=== PATIENT | female | born 1990 | race Caucasian/White ===

== ENCOUNTER → 2016-03-15 | Outpatient (CLI) | payer BC ==
--- NOTE | 2016-03-15 11:56 | US ---
EXAMINATION TYPE: US OB <= 14 wk fetus DATE OF EXAM: 03/15/2016 11:18 AM COMPARISON: No previous CLINICAL HISTORY: Confirm dates, 1. EXAM PERFORMED: Transabdominal (TA) EXAM MEASUREMENTS: GESTATIONAL AGE / DATING Physician Established: (10 weeks/0 days) EDC: 10/11/2016 Dates by LMP: (10 weeks/0 days) EDC: 10/14/2016 Dates by First Scan: No previous Dates by Current Scan: (10 weeks/5 days) EDC: 10/06/2016 MATERNAL ANATOMY Uterus: 11.8 x 6.2 x 7.3cm Right Ovary: 2.7 x 1.9 x 1.4cm Left Ovary: 3.3 x 2.3 x 1.5cm Post CDS / Adnexa: small amount of free fluid in posterior cul de sac Presence of free fluid: yes Presence of corpus luteal cyst: not seen at this time Presence of subchorionic bleed: no GESTATION / SURVEY CRL: 3.9cm (10 weeks/5 days) Yolk Sac (normal less than 6mm): 4.5mm Heart Rate: 167 bpm Rhythm: Normal IUP: Viable IUP Nuchal Translucency 10-14wks (normal less than 3mm): 1.0mm Date of LMP: 01/05/16 Beta HcG (if available): Not available at time of exam IMPRESSION: 1. Viable single IUP measuring 10 weeks 5 days with a heart rate of 167bpm and an estimated delivery date of 10/06/2016. 2. Nonspecific small amount of free fluid seen in posterior cul de sac
== END | disposition home or self-care (01) ==
LOC: RADUSWWP 10:54
PROVIDERS: ATTEND Obstetrics & Gynecology
DX: Z36 Encounter for antenatal screening of mother (principal)
CPT/HCPCS: 76801; 76813

== ENCOUNTER 2016-06-25 02:30 | Outpatient (CLI) | payer BC ==
[2016-06-25 03:25] VITALS: BP 124/67; PULSE 112; RESP 40; TEMP 97.9
[2016-06-25] MEDS: LACTATED RINGERS 1,000 ML IV SCH ×3 (03:33→16:42)
[2016-06-25 03:38] LABS: CH 32.1; CHCM 34.9; HCT 37.9 % (34.0-46.0); HDW 2.56; HGB 13.1 gm/dL (11.4-16.0); MCH 31.9 pg (25.0-35.0); MCHC 34.5 g/dL (31.0-37.0); MCV 92.5 fL (80.0-100.0); Mean Platelet Volume 7.4; RDW 13.4 % (11.5-15.5); WBC 13.4 k/uL (3.8-10.6)
[2016-06-25 03:47] LABS: ALT 27 U/L (9-52); AST 21 U/L (14-36); Alkaline Phosphatase 78 U/L (38-126); Anion Gap 11 mmol/L; Blood Urea Nitrogen 12 mg/dL (7-17); Calcium 9.1 mg/dL (8.4-10.2); Carbon Dioxide 19 mmol/L (22-30); Chloride 106 mmol/L (98-107); Glucose 141 mg/dL (74-99); Non-African American GFR(MDRD) >60 (>60 ml/min/1.73 sqM); Potassium 3.7 mmol/L (3.5-5.1); Sodium 136 mmol/L (137-145); Total Bilirubin 0.9 mg/dL (0.2-1.3); Total Protein 7.1 g/dL (6.3-8.2)
--- NOTE | 2016-06-25 06:30 | P.MSEPDOC ---
Presenting Problems - Arrival Data Date of Arrival on Unit: 06/25/16 Time of Arrival on Unit: 02:28 Mode of Transport: Wheelchair - Complaint OB-Reason for Admission/Chief Complaint: Acute Nausea/Vomiting Medical History - Information : 1 Para: 0 Term: 0 : 0 Abortions: Spontaneous or Elective: 0 Number of Living Children: 0 - Gestational Age Expected Date of Delivery: 10/11/16 Gestational Age by YARELIS (wks/days): 24 Weeks and 4 Days Review of Systems - Review of Systems Constitutional: No problems Breast: No problems ENT: No problems Cardiovascular: No problems Respiratory: No problems Gastrointestinal: Diarrhea Genitourinary: No problems Musculoskeletal: No problems Neurological: Seizure Skin: No problems Comment: pt has known seizure disorder, last seizure 2 weeks ago (non tonic clonic), IBS, and Lupus Vital Signs - Temperature Temperature: 97.9 F Temperature Source: Oral - Pulse Right Sitting Brachial Pulse Rate: 112 Pulse Assessment Method: Pulse Oximetry - Respirations Respiratory Rate: 40 Oxygen Delivery Method: Room Air O2 Sat by Pulse Oximetry: 100 - Blood Pressure Right Arm Sitting Blood Pressure: 124/67 Blood Pressure Mean: 86 Blood Pressure Source: Automatic Cuff Medical Screen Scoring (Pre) - Cervical Exam Dilation: 0 cm = 0 - Uterine Contractions Frequency: < 36 weeks = 6 Duration: N/A Intensity: N/A - Maternal Vital Signs Maternal Temperature: N/A Maternal Blood Pressure: N/A Signs of Preeclampsia: N/A Maternal Respirations: N/A - Maternal Trauma Maternal Trauma: N/A - Assessment Baseline FHR: 165 Heart Rate - NICHD Category: Category I (Normal) = 0 Position: N/A Station: N/A - Total Score Total Score (Pre): 6 - Level of Risk Level of Risk: Medium (6-9) Physician Notification (Pre) - Physician Notified Physician Notified Date: 06/25/16 Physician Notified Time: 03:04 Spoke With: dr ortiz New Order Received: Yes Medical Screen Scoring (Post) - Cervical Exam Dilation: Exam Deferred Effacement: Exam Deferred - Uterine Contractions Frequency: N/A Duration: N/A Intensity: N/A - Maternal Vital Signs Maternal Temperature: N/A Signs of Preeclampsia: N/A Maternal Respirations: N/A - Maternal Trauma Maternal Trauma: N/A - Assessment Heart Rate: 155 Heart Rate - NICHD Category: Category I (Normal) = 0 Position: N/A Station: N/A - Total Score Total Score (Post): 0 - Post Treatment Level of Risk Post Treatment Level of Risk: Low (0-5) Physician Notification (Post) - Physician Notified Physician Notified Date: 06/25/16 Physician Notified Time: 05:24 Physician/Practitioner Notified:: dr ortiz New Order Received: Yes Disposition - Disposition OB Disposition: Discharge to home Discharge Date: 06/25/16 Discharge Time: 05:24 I agree with the RN Medical Screening Exam: Yes Risk & Benefit of care provided described in d/c instruction: Yes Diagnosis: NONINFECTIVE GASTROENTERITIS AND COLITIS, UNSPECIFIED
== END 2016-06-25 05:25 | disposition home or self-care (01) ==
LOC: FBPOP 02:30
PROVIDERS: ATTEND Obstetrics & Gynecology
DX: O99.612 Diseases of the digestive system complicating pregnancy, second trimester (principal); K52.9 Noninfective gastroenteritis and colitis, unspecified; Z3A.24 24 weeks gestation of pregnancy
CPT/HCPCS: 80053; 85027; 96360; 96361; 96365; 99214

== ENCOUNTER 2016-08-29 12:17 | Outpatient (CLI) | payer BC ==
[2016-08-29 12:33] VITALS: BP 128/80; PULSE 96; RESP 18; TEMP 96.9
[2016-08-29 12:57] LABS: Basophils % (A) 0 %; CH 29.6; CHCM 33.5; Eosinophils # (A) 0.1 k/uL (0-0.7); Eosinophils % (A) 1 %; HCT 33.3 % (34.0-46.0); HDW 2.85; HGB 11.6 gm/dL (11.4-16.0); Luc # (Auto) 0.25; Luc % (Auto) 2; Lymphocytes # (A) 1.4 k/uL (1.0-4.8); Lymphocytes % (A) 12 %; MCH 30.9 pg (25.0-35.0); MCHC 34.9 g/dL (31.0-37.0); MCV 88.7 fL (80.0-100.0); Mean Platelet Volume 8.1; Monocytes # (A) 0.6 k/uL (0-1.0); Monocytes % (A) 5 %; Neutrophils # (A) 8.7 k/uL (1.3-7.7); Neutrophils % (A) 80 %; RBC 3.76 m/uL (3.80-5.40); RDW 13.6 % (11.5-15.5); WBC (Perox) 11.78
[2016-08-29 13:06] LABS: ALT 32 U/L (9-52); AST 22 U/L (14-36); Blood Urea Nitrogen 9 mg/dL (7-17); LDH 395 U/L (313-618); Non-African American GFR(MDRD) >60 (>60 ml/min/1.73 sqM); Uric Acid 4.2 mg/dL (3.7-7.4)
[2016-08-29 13:48] LABS: Appearance,Urine Clear (Clear); Bilirubin,Urine Negative (Negative); Glucose,Urine (UA) Negative (Negative); Ketones,Urine Negative (Negative); Leukocyte Esterase,Urine Negative (Negative); Nitrite,Urine Negative (Negative); PH, Urine 7.5 (5.0-8.0); Protein,Urine Negative (Negative); Specific Gravity,Urine 1.005 (1.001-1.035); UA Billing (MACRO vs. MICRO) CHEM; Urobilinogen,Urine <2.0 mg/dL (<2.0)
--- NOTE | 2016-08-30 10:06 | P.MSEPDOC ---
Presenting Problems - Arrival Data Date of Arrival on Unit: 08/29/16 Time of Arrival on Unit: 12:17 Mode of Transport: Ambulatory - Complaint OB-Reason for Admission/Chief Complaint: Elevated Blood Pressure Medical History - Information : 1 Para: 0 Term: 0 : 0 Abortions: Spontaneous or Elective: 0 Number of Living Children: 0 - Gestational Age Expected Date of Delivery: 10/11/16 Gestational Age by YARELIS (wks/days): 34 Weeks and 0 Days Review of Systems - Review of Systems Constitutional: No problems Breast: No problems ENT: No problems Cardiovascular: No problems Respiratory: No problems Gastrointestinal: No problems Genitourinary: No problems Musculoskeletal: No problems Neurological: No problems Skin: No problems Vital Signs - Temperature Temperature: 96.9 F Temperature Source: Temporal Artery Scan - Pulse Right Sitting Brachial Pulse Rate: 96 Pulse Assessment Method: Automatic Cuff - Respirations Respiratory Rate: 18 Oxygen Delivery Method: Room Air - Blood Pressure Right Arm Sitting Blood Pressure: 128/80 Blood Pressure Mean: 96 Blood Pressure Source: Automatic Cuff Medical Screen Scoring (Pre) - Cervical Exam Dilation: Exam Deferred Effacement: Exam Deferred - Uterine Contractions Frequency: N/A - Maternal Vital Signs Maternal Temperature: N/A Maternal Blood Pressure: N/A Signs of Preeclampsia: N/A Maternal Respirations: N/A - Maternal Trauma Maternal Trauma: N/A - Assessment Baseline FHR: 140 Heart Rate - NICHD Category: Category I (Normal) = 0 NST: Reactive Position: N/A Station: N/A - Total Score Total Score (Pre): 0 - Level of Risk Level of Risk: Low (0-5) Physician Notification (Pre) - Physician Notified Physician Notified Date: 08/29/16 Physician Notified Time: 12:30 Spoke With: Elieser Galan Order Received: Yes - Notification Comment Comment: Preeclampsia labs including lamictal level Medical Screen Scoring (Post) - Cervical Exam Dilation: Exam Deferred Effacement: Exam Deferred - Uterine Contractions Frequency: N/A Duration: N/A Intensity: N/A - Maternal Vital Signs Maternal Temperature: N/A Maternal Blood Pressure: N/A Signs of Preeclampsia: N/A Maternal Respirations: N/A - Maternal Trauma Maternal Trauma: N/A - Assessment Heart Rate: 140 Heart Rate - NICHD Category: Category I (Normal) = 0 NST: Reactive Position: N/A Station: N/A - Total Score Total Score (Post): 0 - Post Treatment Level of Risk Post Treatment Level of Risk: Low (0-5) Physician Notification (Post) - Physician Notified Physician Notified Date: 08/29/16 Physician Notified Time: 14:00 Spoke With: Elieser Galan Order Received: Yes - Notification Comment Comment: d/c home Disposition - Disposition OB Disposition: Admit Discharge Date: 08/29/16 Discharge Time: 14:02 I agree with the RN Medical Screening Exam: Yes Risk & Benefit of care provided described in d/c instruction: Yes Diagnosis: EPILEPSY, UNSP, NOT INTRACTABLE, WITHOUT STATUS EPILEPTICUS
== END 2016-08-29 14:02 | disposition home or self-care (01) ==
LOC: FBPOP 12:17
PROVIDERS: ATTEND Obstetrics & Gynecology
DX: O99.353 Diseases of the nervous system complicating pregnancy, third trimester (principal); G40.909 Epilepsy, unspecified, not intractable, without status epilepticus; Z3A.34 34 weeks gestation of pregnancy
CPT/HCPCS: 59025; 80175; 81003; 82565; 83615; 84450; 84460; 84520; 84550; 85025; 99215

== ENCOUNTER 2016-10-04 12:22 | Inpatient (IN) | payer BC ==
[2016-10-04] MEDS ORDERED: OXYTOCIN 10 UNIT/ML 1 ML VIAL IM PRN (12:48)
[2016-10-04] MEDS ORDERED: METHYLERGONOVINE 0.2 MG/ML 1 ML AMP IM PRN (12:48)
[2016-10-04] MEDS ORDERED: LIDOCAINE 1% (PF) 10 MG/ML (30 ML SDV) SQ PRN (12:48)
[2016-10-04] MEDS ORDERED: TERBUTALINE 1 MG/ML VIAL SQ PRN (12:48)
[2016-10-04] MEDS ORDERED: CARBOPROST TROMETHAMINE 250 MCG/ML 1 ML AMP IM PRN (12:48)
[2016-10-04] MEDS ORDERED: OXYTOCIN 20 UNITS/1000 ML NS 1,000 ML IV SCH ×2 (13:00→20:30)
[2016-10-04] MEDS: LACTATED RINGERS 1,000 ML IV SCH ×2 (13:06→16:00)
--- NOTE | 2016-10-04 13:06 | P.HPOB ---
History of Present Illness H&P Date: 10/04/16 Chief Complaint: Gestational Hypertension 25 year old presents at 39 weeks for induction of labor. She came to the office today and was found to have an elevated BP of 154/102. This is the second time she has had an elevated BP so she was diagnosed with gestational hypertension and sent to L&D for induction. Her cervix is 1/90/-2 and she is angie irregularly. heart tones 135-140 with moderate variability and reactive. Review of Systems All systems: negative Constitutional: Denies chills, Denies fever Eyes: denies blurred vision, denies pain Ears, nose, mouth and throat: Denies headache, Denies sore throat Cardiovascular: Denies chest pain, Denies shortness of breath Respiratory: Denies cough Gastrointestinal: Denies abdominal pain, Denies diarrhea, Denies nausea, Denies vomiting Genitourinary: Denies dysuria, Denies hematuria Musculoskeletal: Denies myalgias Integumentary: Denies pruritus, Denies rash Neurological: Denies numbness, Denies weakness Psychiatric: Denies anxiety, Denies depression Endocrine: Denies fatigue, Denies weight change Past Medical History Past Medical History: Neurologic Disorder (epilepsy) Additional Past Medical History / Comment(s): IBS,. OB history: This is her first and she has had care with me since the first trimester. She has been on lamictal during the and has recently had to have the dose increased because she started to have seizures again and her level was not therapeutic. normal anatomy US.GBS neg. History of Any Multi-Drug Resistant Organisms: None Reported Past Surgical History: No Surgical Hx Reported Past Anesthesia/Blood Transfusion Reactions: No Reported Reaction Past Psychological History: No Psychological Hx Reported Smoking Status: Never smoker Past Alcohol Use History: None Reported Past Drug Use History: None Reported Medications and Allergies Home Medications Medication Instructions Recorded Confirmed Type Hydroxychloroquine Sulfate 200 mg PO BID 06/25/16 10/04/16 History [Plaquenil] Multivitamin/Iron/Folic Acid 1 each PO DAILY 06/25/16 10/04/16 History [Centrum Complete Multivit Tab] lamoTRIgine [LaMICtal] 500 mg PO AC-BRKFST 06/25/16 10/04/16 History Cholecalciferol (Vitamin D3) 2,000 tab PO DAILY 08/29/16 10/04/16 History [Vitamin D3] Folic Acid 0.4 tab PO DAILY 08/29/16 10/04/16 History lamoTRIgine [LaMICtal] 600 mg PO ACHS 10/04/16 10/04/16 History Allergies Allergy/AdvReac Type Severity Reaction Status Date / Time No Known Allergies Allergy Verified 10/04/16 12:42 Exam Osteopathic Statement: *. No significant issues noted on an osteopathic structural exam other than those noted in the History and Physical/Consult. - Vital Signs Vital signs: Intake and Output 10/03/16 10/04/16 10/04/16 22:59 06:59 14:59 Other: Weight 92.986 kg Patient Weight 10/05/16 06:59 Weight 92.986 kg Heart: Regular rate and rhythm Lungs: Clear to auscultation bilaterally Abdomen: Soft, nontender Extremities: Negative Homans sign Assessment and Plan (1) Gestational hypertension Status: Acute (2) Epilepsy Status: Acute Plan: 1. Induction of labor with amniotomy and Pitocin 2. Anticipate normal vaginal delivery
[2016-10-04 13:13] LABS: ALT 39 U/L (9-52); AST 30 U/L (14-36); LDH 518 U/L (313-618); Non-African American GFR(MDRD) >60 (>60 ml/min/1.73 sqM); Uric Acid 5.5 mg/dL (3.7-7.4)
[2016-10-04 13:16] LABS: INR 0.9 (<1.2); Partial Thromboplastin Time 24.2 sec (22.0-30.0); Prothrombin Time 9.5 sec (9.0-12.0)
[2016-10-04 13:22] LABS: Basophils % (A) 0 %; CH 29.1; CHCM 33.7; Eosinophils # (A) 0.1 k/uL (0-0.7); Eosinophils % (A) 1 %; HCT 36.2 % (34.0-46.0); HDW 2.58; HGB 12.4 gm/dL (11.4-16.0); Luc # (Auto) 0.16; Luc % (Auto) 1; Lymphocytes # (A) 1.4 k/uL (1.0-4.8); Lymphocytes % (A) 12 %; MCH 29.6 pg (25.0-35.0); MCHC 34.2 g/dL (31.0-37.0); MCV 86.7 fL (80.0-100.0); Mean Platelet Volume 8.1; Monocytes # (A) 0.5 k/uL (0-1.0); Monocytes % (A) 4 %; Neutrophils # (A) 9.6 k/uL (1.3-7.7); Neutrophils % (A) 82 %; RBC 4.17 m/uL (3.80-5.40); RDW 14.9 % (11.5-15.5); WBC 11.8 k/uL (3.8-10.6); WBC (Perox) 12.15
[2016-10-04 13:27] VITALS: RESP 16; BMI 30.2
[2016-10-04 14:46] LABS: Appearance,Urine Clear (Clear); Bacteria,Urine Occasional /hpf; Bilirubin,Urine Negative (Negative); Glucose,Urine (UA) Negative (Negative); Ketones,Urine 1+ (Negative); Leukocyte Esterase,Urine Trace (Negative); Nitrite,Urine Negative (Negative); Particle Count 3245; Protein,Urine Trace (Negative); RBC,Urine 99 /hpf (0-5); Specific Gravity,Urine 1.006 (1.001-1.035); Squamous Epithelial Cell,Urine 1 /hpf (0-4); UA Billing (MACRO vs. MICRO) MICRO; Urobilinogen,Urine <2.0 mg/dL (<2.0); WBC,Urine 87 /hpf (0-5)
[2016-10-04] MEDS ORDERED: BUPIVACAINE (PF) 0.25% 30 ML VIAL ONE (16:05)
[2016-10-04] MEDS ORDERED: SODIUM CHLORIDE 0.9% 100 ML BAG ONE (16:05)
[2016-10-04] MEDS ORDERED: fentaNYL (PF) 50 MCG/ML 5 ML AMP ONE (16:05)
[2016-10-04] MEDS ORDERED: diphenhydrAMINE 25 MG CAP PO PRN (20:24)
[2016-10-04] MEDS ORDERED: diphenhydrAMINE 50 MG/ML 1 ML VIAL IVP PRN ×2 (20:24)
[2016-10-04] MEDS ORDERED: BENZOCAINE/MENTHOL SPRAY 1 GM/SPRAY AEROSOL TOPICAL PRN (20:24)
[2016-10-04] MEDS ORDERED: ACETAMINOPHEN TAB 325 MG TAB PO PRN (20:24)
[2016-10-04] MEDS ORDERED: diphenhydrAMINE 50 MG CAP PO PRN (20:24)
[2016-10-04] MEDS ORDERED: SIMETHICONE 80 MG CHEWABLE PO PRN (20:24)
[2016-10-04] MEDS ORDERED: ZOLPIDEM 5 MG TAB PO PRN (20:24)
[2016-10-04] MEDS ORDERED: Acetaminophen-Codeine 300-30mg TAB PO PRN ×2 (20:24)
[2016-10-04] MEDS ORDERED: HYDROCORTISONE 2.5% RECTAL CREAM 30 GM TUBE RECTAL PRN (20:24)
[2016-10-04] MEDS ORDERED: LANOLIN CREAM 5 GM TUBE TOPICAL PRN (20:24)
[2016-10-04] MEDS ORDERED: WITCH HAZEL 1 EACH MED..PAD TOPICAL PRN (20:24)
--- NOTE | 2016-10-04 20:31 | P.PROBDLV ---
Vaginal Delivery Note - . Vaginal Delivery Note: 35-year-old presented at 39 weeks gestation for induction of labor. Her cervix was 1 cm dilated, 90% effaced, -2 station. She is angie irregularly. heart tones 135-140 with moderate variability and reactive. Amniotomy was performed at 12:52 PM, meconium fluid seen. Pitocin was started. She progressed throughout the day and did get an epidural was comfortable with this. Her cervix was completely dilated at 1908. She pushed, delivered a viable female over intact perineum under epidural anesthesia at 194. Head delivered OA, anterior shoulder delivered gentle downward traction followed by posterior shoulder and rest of body. Nose and mouth bulb suctioned, cord clamped and cut, placed on mother's abdomen. Apgars 9, 9 , weight 8 pounds. Placenta delivered spontaneously, intact with three-vessel cord at 194. Vagina, cervix, perineum inspected. Second-degree midline laceration and bilateral labial lacerations repaired with 2-0 and 3-0 Vicryl. Estimated blood loss 300 mL mother and baby in stable condition.
[2016-10-04] MEDS: IBUPROFEN 600 MG TAB PO PRN (22:15)
[2016-10-04] MEDS: lamoTRIgine 100 MG TAB PO SCH (22:16)
[2016-10-04] MEDS: HYDROXYCHLOROQUINE SULFATE 200 MG TAB PO SCH (22:17)
[2016-10-05] MEDS: IBUPROFEN 600 MG TAB PO PRN ×3 (05:19→19:49)
--- NOTE | 2016-10-05 08:52 | P.PNOBGVD ---
Subjective - Subjective Principal diagnosis: S/P NVD PPD #1 Interval history: Pt seen and examined. Denies N/V, F/C, CP, SOB, calf pain. Patient reports: Reports appetite normal, Reports voiding normally, Reports pain well controlled, Reports ambulating normally : doing well Objective - Latest Vital Signs Latest vital signs: Vital Signs Temp Pulse Resp BP 10/05/16 04:00 98.4 F 95 16 122/80 10/04/16 23:40 99.6 F 88 16 121/75 10/04/16 22:15 98.0 F 116 H 16 119/70 10/04/16 21:45 98.3 F 126 H 16 118/74 10/04/16 21:15 117 H 16 119/66 10/04/16 21:00 98.1 F 117 H 16 119/56 10/04/16 20:45 116 H 16 122/60 10/04/16 20:30 97.3 F L 122 H 16 123/75 10/04/16 20:15 116 H 16 124/78 10/04/16 13:19 98.0 F 103 H 16 150/81 Intake and Output 10/04/16 10/05/16 10/05/16 22:59 06:59 14:59 Intake Total 3244.85 600 Balance 3244.85 600 Intake: IV 125 Lactated Ringers 1,000 ml 125 @ 125 mls/hr IV .Q8H RUSS Rx#:[id number] Intake, IV Titration 1919.85 Amount Lactated Ringers 1,000 ml 1000 @ 125 mls/hr IV .Q8H RUSS Rx#:[id number] Oxytocin 20 Units/1000 ml 19.85 Ns 1,000 ml @ 1 MILLIUNIT/MIN 3 mls/hr IV .Q24H RUSS Rx#:[id number] Oxytocin 20 Units/1000 ml 900 Ns 1,000 ml @ Per Protocol IV .Q0M RUSS Rx#: [id number] Oral 1200 600 Other: # Voids 1 1 - Exam Lungs: bilateral: normal Chest: Normal S1, Normal S2 Extremities: Present: normal Abdomen: Present: normal appearance, soft Uterus: Present: normal, firm - Labs Labs: Abnormal Lab Results - Last 24 Hours (Table) 10/04/16 10/04/16 Range/Units 12:45 14:30 WBC 11.8 H (3.8-10.6) k/uL Neutrophils # 9.6 H (1.3-7.7) k/uL Urine Protein Trace H (Negative) Urine Ketones 1+ H (Negative) Urine Blood Large H (Negative) Ur Leukocyte Esterase Trace H (Negative) Urine RBC 99 H (0-5) /hpf Urine WBC 87 H (0-5) /hpf Urine Bacteria Occasional H (None) /hpf Assessment and Plan (1) Gestational hypertension Current Visit: Yes Status: Acute Code(s): O13.9 - GESTATIONAL HTN W/O SIGNIFICANT PROTEINURIA, UNSP TRIMESTER SNOMED Code(s): 96791090 (2) Epilepsy Current Visit: Yes Status: Acute Code(s): G40.909 - EPILEPSY, UNSP, NOT INTRACTABLE, WITHOUT STATUS EPILEPTICUS SNOMED Code(s): 14063469 (3) Normal vaginal delivery Narrative/Plan: 1. cont pp care Current Visit: Yes Status: Acute Code(s): O80 - ENCOUNTER FOR FULL-TERM UNCOMPLICATED DELIVERY SNOMED Code(s): 77829086
[2016-10-05] MEDS: SENNOSIDES-DOCUSATE SODIUM 1 EACH TAB PO SCH ×2 (09:01→19:49)
[2016-10-05] MEDS: lamoTRIgine 100 MG TAB PO SCH ×2 (09:02→20:53)
[2016-10-05] MEDS: HYDROXYCHLOROQUINE SULFATE 200 MG TAB PO SCH ×2 (09:02→20:53)
[2016-10-05] MEDS ORDERED: MEASLES-MUMPS-RUBELLA VACC/PF 12,500 UNIT/0.5 ML VIAL SQ ONE (12:16)
[2016-10-05] MEDS ORDERED: lamoTRIgine 100 MG TAB PO SCH (21:00)
[2016-10-06] MEDS: IBUPROFEN 600 MG TAB PO PRN (08:08)
[2016-10-06] MEDS: lamoTRIgine 100 MG TAB PO SCH (08:09)
[2016-10-06] MEDS: HYDROXYCHLOROQUINE SULFATE 200 MG TAB PO SCH (08:09)
[2016-10-06 08:32] VITALS: BP 113/71; PULSE 110; TEMP 98.1
--- NOTE | 2016-10-06 09:57 | P.DS ---
Providers Date of admission: 10/04/16 12:22 Expected date of discharge: 10/06/16 Attending physician: Chelsi Mon Primary care physician: Stated None - Discharge Diagnosis(es) (1) Gestational hypertension Current Visit: Yes Status: Acute (2) Epilepsy Current Visit: Yes Status: Acute (3) Normal vaginal delivery Pt presented for induction of labor. She underwent a normal vaginal delivery and had an uncomplicated post course. She will be discharged home PPD # 2 in stable condition to follow up with me in 6 weeks. Current Visit: Yes Status: Acute Plan - Discharge Summary New Discharge Prescriptions: New Ibuprofen [Motrin] 600 mg PO Q6HR PRN #30 tab PRN Reason: Mild Pain Or Fever >= 100.5 No Action lamoTRIgine [LaMICtal] 500 mg PO AC-BRKFST Multivitamin/Iron/Folic Acid [Centrum Complete Multivit Tab] 1 each PO DAILY Hydroxychloroquine Sulfate [Plaquenil] 200 mg PO BID Folic Acid 0.4 tab PO DAILY Cholecalciferol (Vitamin D3) [Vitamin D3] 2,000 tab PO DAILY lamoTRIgine [LaMICtal] 600 mg PO ACHS Discharge Medication List Hydroxychloroquine Sulfate [Plaquenil] 200 mg PO BID 06/25/16 [History] Multivitamin/Iron/Folic Acid [Centrum Complete Multivit Tab] 1 each PO DAILY [History] lamoTRIgine [LaMICtal] 500 mg PO AC-BRKFST 06/25/16 [History] Cholecalciferol (Vitamin D3) [Vitamin D3] 2,000 tab PO DAILY 08/29/16 [History] Folic Acid 0.4 tab PO DAILY 08/29/16 [History] lamoTRIgine [LaMICtal] 600 mg PO ACHS 10/04/16 [History] Ibuprofen [Motrin] 600 mg PO Q6HR PRN #30 tab 10/06/16 [Rx] Follow up Appointment(s)/Referral(s): Chelsi Mon DO [Doctor of Osteopathic Medicine] - 6 Weeks
== END 2016-10-06 10:45 | disposition home or self-care (01) | DRG 775 ==
LOC: 4FBP 12:22
PROVIDERS: ADMIT Obstetrics & Gynecology; ATTEND Obstetrics & Gynecology
PROC: 10907ZC Drainage of Amniotic Fluid, Therapeutic from Products of Conception, Via Natural or Artificial Opening (ICD-10-PCS; principal; 2016-10-04)
PROC: 3E033VJ Introduction of Other Hormone into Peripheral Vein, Percutaneous Approach (ICD-10-PCS; principal; 2016-10-04)
PROC: 00HU33Z Insertion of Infusion Device into Spinal Canal, Percutaneous Approach (ICD-10-PCS; principal; 2016-10-04)
PROC: 10E0XZZ Delivery of Products of Conception, External Approach (ICD-10-PCS; principal; 2016-10-04)
PROC: 3E0R3CZ (ICD-10-PCS; principal; 2016-10-04)
PROC: 0UQMXZZ Repair Vulva, External Approach (ICD-10-PCS; principal; 2016-10-04)
DX: O13.4 Gestational [pregnancy-induced] hypertension without significant proteinuria, complicating childbirth (principal); O99.354 Diseases of the nervous system complicating childbirth; Z37.0 Single live birth; G40.909 Epilepsy, unspecified, not intractable, without status epilepticus; O77.0 Labor and delivery complicated by meconium in amniotic fluid; O70.1 Second degree perineal laceration during delivery; Z3A.39 39 weeks gestation of pregnancy; O70.0 First degree perineal laceration during delivery
CPT/HCPCS: 80175; 81001; 82565; 83615; 84450; 84460; 84550; 85025; 85610; 85730; 88307; 90707

== ENCOUNTER 2018-10-10 12:29 | Emergency (ER) | payer BC ==
[2018-10-10] MEDS ORDERED: SODIUM CHLORIDE 0.9% 2,000 ML IV STA (13:21)
--- NOTE | 2018-10-10 13:44 | ED ---
Nausea/Vomiting/Diarrhea HPI - General Chief complaint: Nausea/Vomiting/Diarrhea Stated complaint: 8wks preg, diarrhea Time Seen by Provider: 10/10/18 12:56 Source: patient, RN notes reviewed Mode of arrival: ambulatory Limitations: no limitations - History of Present Illness Initial comments: 27-year-old female presents emergency Department chief complaint of nausea vomiting diarrhea. Patient states she's had diarrhea since Friday and has progressed. She did have one and one episode of vomiting but states constant nauseated. Patient states he is just worried that she is dehydrated and she is . She has no complaints of vaginal bleeding or vaginal discharge. Patient is A0 and seen Dr. Mon. Patient states her daughter was diagnosed with rotavirus she believes that she may have flu symptoms. Patient states that she just feels rundown and weak and dehydrated. Patient denies any melena or hematochezia - Related Data Home Medications Medication Instructions Recorded Confirmed Hydroxychloroquine Sulfate 200 mg PO BID 06/25/16 10/04/16 [Plaquenil] Multivitamin/Iron/Folic Acid 1 each PO DAILY 06/25/16 10/04/16 [Centrum Complete Multivit Tab] lamoTRIgine [LaMICtal] 500 mg PO AC-BRKFST 06/25/16 10/04/16 Cholecalciferol (Vitamin D3) 2,000 tab PO DAILY 08/29/16 10/04/16 [Vitamin D3] Folic Acid 0.4 tab PO DAILY 08/29/16 10/04/16 lamoTRIgine [LaMICtal] 600 mg PO ACHS 10/04/16 10/04/16 Previous Rx's Medication Instructions Recorded Ibuprofen [Motrin] 600 mg PO Q6HR PRN #30 tab 10/06/16 Allergies Allergy/AdvReac Type Severity Reaction Status Date / Time No Known Allergies Allergy Verified 10/10/18 12:52 Review of Systems ROS Statement: Those systems with pertinent positive or pertinent negative responses have been documented in the HPI. ROS Other: All systems not noted in ROS Statement are negative. Past Medical History Past Medical History: Neurologic Disorder Additional Past Medical History / Comment(s): IBS,. Epilepsy since age 10. Lupus History of Any Multi-Drug Resistant Organisms: None Reported Past Surgical History: No Surgical Hx Reported Past Anesthesia/Blood Transfusion Reactions: No Reported Reaction Past Psychological History: No Psychological Hx Reported Smoking Status: Never smoker Past Alcohol Use History: None Reported Past Drug Use History: None Reported - Past Family History Mother Family Medical History: No Reported History General Exam Limitations: no limitations General appearance: alert, in no apparent distress Head exam: Present: atraumatic, normocephalic, normal inspection Neck exam: Present: normal inspection, full ROM. Absent: tenderness, meningismus, lymphadenopathy Respiratory exam: Present: normal lung sounds bilaterally. Absent: respiratory distress, wheezes, rales, rhonchi, stridor Cardiovascular Exam: Present: regular rate, normal rhythm, normal heart sounds. Absent: systolic murmur, diastolic murmur, rubs, gallop, clicks GI/Abdominal exam: Present: soft, normal bowel sounds. Absent: distended, tenderness, guarding, rebound, rigid Neurological exam: Present: alert, oriented X3, CN II-XII intact Skin exam: Present: warm, dry, intact, normal color. Absent: rash Course Vital Signs 10/10/18 10/10/18 12:50 15:38 Temperature 98.6 F Pulse Rate 91 75 Respiratory 16 18 Rate Blood Pressure 113/77 100/53 O2 Sat by Pulse 99 100 Oximetry Medical Decision Making - Medical Decision Making 27-year-old female presented for diarrhea, dehydration. Patient is well hydrated 2 L she did have 2+ ketones otherwise unremarkable labs. Patient had ultrasound confirmed patient will be discharged. - Lab Data Result diagrams: 10/10/18 14:05 10/10/18 14:05 Lab Results 10/10/18 10/10/18 10/10/18 Range/Units 14:05 14:05 15:43 WBC 7.9 (3.8-10.6) k/uL RBC 4.96 (3.80-5.40) m/uL Hgb 14.8 (11.4-16.0) gm/dL Hct 44.9 (34.0-46.0) % MCV 90.6 (80.0-100.0) fL MCH 29.8 (25.0-35.0) pg MCHC 32.9 (31.0-37.0) g/dL RDW 15.4 (11.5-15.5) % Plt Count 208 (150-450) k/uL Neutrophils % 81 % Lymphocytes % 10 % Monocytes % 7 % Eosinophils % 1 % Basophils % 0 % Neutrophils # 6.4 (1.3-7.7) k/uL Lymphocytes # 0.8 L (1.0-4.8) k/uL Monocytes # 0.5 (0-1.0) k/uL Eosinophils # 0.1 (0-0.7) k/uL Basophils # 0.0 (0-0.2) k/uL Sodium 136 L (137-145) mmol/L Potassium 3.9 (3.5-5.1) mmol/L Chloride 100 (98-107) mmol/L Carbon Dioxide 22 (22-30) mmol/L Anion Gap 14 mmol/L BUN 12 (7-17) mg/dL Creatinine 0.53 (0.52-1.04) mg/dL Est GFR (CKD-EPI)AfAm >90 (>60 ml/min/1.73 sqM) Est GFR (CKD-EPI)NonAf >90 (>60 ml/min/1.73 sqM) Glucose 82 (74-99) mg/dL Calcium 9.3 (8.4-10.2) mg/dL Magnesium 1.8 (1.6-2.3) mg/dL Total Bilirubin 0.6 (0.2-1.3) mg/dL AST 71 H (14-36) U/L ALT 35 (9-52) U/L Alkaline Phosphatase 62 (38-126) U/L Total Protein 7.7 (6.3-8.2) g/dL Albumin 4.4 (3.5-5.0) g/dL Amylase 44 (30-110) U/L Lipase 36 (23-300) U/L Urine Color Yellow Urine Appearance Clear (Clear) Urine pH 6.0 (5.0-8.0) Ur Specific Dixon 1.013 (1.001-1.035) Urine Protein Negative (Negative) Urine Glucose (UA) Negative (Negative) Urine Ketones 2+ H (Negative) Urine Blood Negative (Negative) Urine Nitrite Negative (Negative) Urine Bilirubin Negative (Negative) Urine Urobilinogen <2.0 (<2.0) mg/dL Ur Leukocyte Esterase Negative (Negative) Disposition Clinical Impression: Viral diarrhea, Dehydration Disposition: HOME SELF-CARE Condition: Stable Instructions (If sedation given, give patient instructions): Acute Diarrhea (ED) Additional Instructions: Please return to the Emergency Department if symptoms worsen or any other concerns. Is patient prescribed a controlled substance at d/c from ED?: No Referrals: Clay Hemphill MD [Primary Care Provider] - 1-2 days Time of Disposition: 16:26
[2018-10-10 14:23] LABS: Basophils % (A) 0 %; Eosinophils # (A) 0.1 k/uL (0-0.7); Eosinophils % (A) 1 %; HCT 44.9 % (34.0-46.0); HGB 14.8 gm/dL (11.4-16.0); Lymphocytes # (A) 0.8 k/uL (1.0-4.8); Lymphocytes % (A) 10 %; MCH 29.8 pg (25.0-35.0); MCHC 32.9 g/dL (31.0-37.0); MCV 90.6 fL (80.0-100.0); Mean Platelet Volume 6.9; Monocytes # (A) 0.5 k/uL (0-1.0); Monocytes % (A) 7 %; Neutrophils # (A) 6.4 k/uL (1.3-7.7); Neutrophils % (A) 81 %; Platelet Count 208 k/uL (150-450); RBC 4.96 m/uL (3.80-5.40); RDW 15.4 % (11.5-15.5); WBC 7.9 k/uL (3.8-10.6)
[2018-10-10 14:34] LABS: ALT 35 U/L (9-52); AST 71 U/L (14-36); African American GFR (CKD) >90 (>60 ml/min/1.73 sqM); Albumin 4.4 g/dL (3.5-5.0); Alkaline Phosphatase 62 U/L (38-126); Amylase 44 U/L (30-110); Anion Gap 14 mmol/L; Blood Urea Nitrogen 12 mg/dL (7-17); Calcium 9.3 mg/dL (8.4-10.2); Carbon Dioxide 22 mmol/L (22-30); Chloride 100 mmol/L (98-107); Glucose 82 mg/dL (74-99); Magnesium 1.8 mg/dL (1.6-2.3); Sodium 136 mmol/L (137-145); Total Bilirubin 0.6 mg/dL (0.2-1.3); Total Protein 7.7 g/dL (6.3-8.2)
--- NOTE | 2018-10-10 14:51 | US ---
EXAMINATION TYPE: Transabdominal DATE OF EXAM: 10/10/2018 2:41 PM COMPARISON: NONE CLINICAL HISTORY: Pain. Diarrhea EXAM PERFORMED: Transabdominal (TA) EXAM MEASUREMENTS: GESTATIONAL AGE / DATING Physician Established: Not yet established Dates by LMP: (7 weeks/5 days) EDC: 05/24/2019 Dates by First Scan: No previous this is first scan Dates by Current Scan for: (6 weeks/6 days) EDC: 05/30/2019 MATERNAL ANATOMY Uterus: 8.8 x 5.4 x 6.1 cm Right Ovary: 2.5 x 2.2 x 2.0 cm Left Ovary: 1.7 x 1.8 x 1.5 cm Post CDS / Adnexa: wnl Presence of free fluid: No Presence of corpus luteal cyst: Right ovary measuring 1.3 x 1.3 x 0.9 cm Presence of subchorionic bleed: No GESTATION / SURVEY CRL: 0.9 cm (6 weeks/6 days) Yolk Sac (normal less than 6mm): 2 mm Heart Rate: 153 bpm Rhythm: Normal IUP: Viable IUP Date of LMP: 08/17/2018 Beta HcG (if available): Not available at this time Viable IUP with an YARELIS of 05/30/2019. Single live intrauterine gestation is confirmed as gestational sac, yolk sac, and pole are pres ent. No free fluid in pelvic cul-de-sac. Both ovaries are seen. Corpus luteal cyst right ovary is felt present as there is 1.3 cm cystic lesio n identified. IMPRESSION: Single live intrauterine gestation is confirmed, mean crown-rump length is 0.9 cm corresp onding to 6 week 6 day old fetus.
[2018-10-10 14:53] LABS: Potassium 3.9 mmol/L (3.5-5.1)
[2018-10-10 15:40] VITALS: RESP 18
[2018-10-10 15:55] LABS: Appearance,Urine Clear (Clear); Bilirubin,Urine Negative (Negative); Blood,Urine Negative (Negative); Color,Urine Yellow; Glucose,Urine (UA) Negative (Negative); Ketones,Urine 2+ (Negative); Leukocyte Esterase,Urine Negative (Negative); Nitrite,Urine Negative (Negative); Protein,Urine Negative (Negative); Specific Gravity,Urine 1.013 (1.001-1.035); Urobilinogen,Urine <2.0 mg/dL (<2.0)
[2018-10-10 17:03] VITALS: BP 105/63; PULSE 86; TEMP 97.6
== END 2018-10-10 17:03 | disposition home or self-care (01) ==
LOC: EC 12:29
DX: O99.281 Endocrine, nutritional and metabolic diseases complicating pregnancy, first trimester (principal); E86.0 Dehydration; O98.511 Other viral diseases complicating pregnancy, first trimester; A08.4 Viral intestinal infection, unspecified; O99.89 Other specified diseases and conditions complicating pregnancy, childbirth and the puerperium; R82.4 Acetonuria; R53.1 Weakness; O99.351 Diseases of the nervous system complicating pregnancy, first trimester; G40.909 Epilepsy, unspecified, not intractable, without status epilepticus; M32.9 Systemic lupus erythematosus, unspecified; Z79.899 Other long term (current) drug therapy; Z87.19 Personal history of other diseases of the digestive system; Z3A.01 Less than 8 weeks gestation of pregnancy
CPT/HCPCS: 36415; 76801; 80053; 81003; 82150; 83690; 83735; 85025; 96360; 96361; 99284

== ENCOUNTER 2019-04-29 19:31 | Outpatient (CLI) | payer BC ==
[2019-04-29 20:46] LABS: Protein/Creatinine Ratio,Urine 0.095
[2019-04-29 21:07] LABS: Appearance,Urine Clear (Clear); Bilirubin,Urine Negative (Negative); Blood,Urine Negative (Negative); Color,Urine Yellow; Glucose,Urine (UA) Negative (Negative); Ketones,Urine Negative (Negative); Leukocyte Esterase,Urine Negative (Negative); Mucus,Urine Rare /hpf; Nitrite,Urine Negative (Negative); PH, Urine 6.5 (5.0-8.0); Protein,Urine 1+ (Negative); RBC,Urine <1 /hpf (0-5); Specific Gravity,Urine 1.025 (1.001-1.035); Squamous Epithelial Cell,Urine <1 /hpf (0-4); Urobilinogen,Urine <2.0 mg/dL (<2.0); WBC,Urine <1 /hpf (0-5)
[2019-04-29 21:27] VITALS: BP 126/89; PULSE 92; RESP 16; TEMP 97.2
[2019-04-29 21:51] LABS: ALT 12 U/L (4-34); AST 24 U/L (14-36); African American GFR (CKD) >90 (>60 ml/min/1.73 sqM); Blood Urea Nitrogen 15 mg/dL (7-17); LDH 426 U/L (313-618); Non-African American GFR(CKD) >90 (>60 ml/min/1.73 sqM); Uric Acid 4.3 mg/dL (3.7-7.4)
[2019-04-29 21:52] LABS: Basophils % (A) 0 %; Eosinophils % (A) 0 %; HGB 10.9 gm/dL (11.4-16.0); Lymphocytes # (A) 1.4 k/uL (1.0-4.8); Lymphocytes % (A) 18 %; MCH 28.2 pg (25.0-35.0); MCHC 33.1 g/dL (31.0-37.0); MCV 85.1 fL (80.0-100.0); Mean Platelet Volume 7.9; Monocytes # (A) 0.4 k/uL (0-1.0); Monocytes % (A) 6 %; Neutrophils # (A) 5.7 k/uL (1.3-7.7); Neutrophils % (A) 73 %; Platelet Count 239 k/uL (150-450); RBC 3.88 m/uL (3.80-5.40); RDW 13.7 % (11.5-15.5); WBC 7.7 k/uL (3.8-10.6)
--- NOTE | 2019-05-06 14:59 | P.MSEPDOC ---
Presenting Problems - Arrival Data Date of Arrival on Unit: 04/29/19 Time of Arrival on Unit: 19:31 Mode of Transport: Ambulatory - Complaint OB-Reason for Admission/Chief Complaint: Headache, Elevated Blood Pressure Comment: Pt states bp 150/92 today at work and H/A for the past 24 hours unrelieved by tylenol. Medical History - Information : 2 Para: 1 Term: 1 : 0 Abortions: Spontaneous or Elective: 0 Number of Living Children: 1 - Gestational Age Gestational Age by YARELIS (wks/days): 36 Weeks and 3 Days Review of Systems - Review of Systems Constitutional: No problems Breast: No problems ENT: No problems Cardiovascular: No problems Respiratory: No problems Gastrointestinal: No problems Genitourinary: No problems Musculoskeletal: No problems Neurological: No problems Skin: No problems Vital Signs - Temperature Temperature: 97.2 F Temperature Source: Temporal Artery Scan - Pulse Right Brachial Pulse Rate: 92 Pulse Assessment Method: Automatic Cuff - Respirations Respiratory Rate: 16 Oxygen Delivery Method: Room Air O2 Sat by Pulse Oximetry: 98 - Blood Pressure Right Arm Blood Pressure: 126/89 Blood Pressure Mean: 101 Blood Pressure Source: Automatic Cuff Medical Screen Scoring (Pre) - Cervical Exam Dilation: Exam Deferred Effacement: Exam Deferred - Uterine Contractions Frequency: > 5 minutes apart = 1 Duration: > 40 seconds = 2 Intensity: N/A - Maternal Vital Signs Maternal Temperature: N/A Signs of Preeclampsia: Headache = 1 Maternal Respirations: N/A - Assessment - Baby A Baseline FHR: 130 Heart Rate - NICHD Category: Category I (Normal) = 0 NST: Reactive - Total Score - Baby A Total Score - Baby A: 4 - Total Score - Baby B Total Score - Baby B: 4 - Total Score - Baby C Total Score - Baby C: 4 - Level of Risk - Baby A Level of Risk - Baby A: Low (0-5) - Level of Risk - Baby B Level of Risk - Baby B: Low (0-5) - Level of Risk - Baby C Level of Risk - Baby C: Low (0-5) Physician Notification (Pre) - Physician Notified Physician Notified Date: 04/29/19 Physician Notified Time: 20:23 New Order Received: Yes - Notification Comment Comment: Reported pih lab work, ua results. Orders to d/c pt home with follow up friday05/03/19 with Elieser. Try benadryl for headache and ask Dr. Mon about work release if needed. Disposition - Disposition OB Disposition: Discharge to home, Written follow up instructions reviewed Discharge Date: 04/29/19 Discharge Time: 22:02 I agree with the RN Medical Screening Exam: Yes Risk & Benefit of care provided described in d/c instruction: Yes Diagnosis: UNSPECIFIED MATERNAL HYPERTENSION, THIRD TRIMESTER
== END 2019-04-29 22:02 | disposition home or self-care (01) ==
LOC: FBPOP 19:31
PROVIDERS: ATTEND Obstetrics & Gynecology
DX: O16.3 Unspecified maternal hypertension, third trimester (principal); Z3A.36 36 weeks gestation of pregnancy
CPT/HCPCS: 59025; 81001; 82565; 82570; 83615; 84156; 84450; 84460; 84520; 84550; 85025; 99215

== ENCOUNTER 2019-05-22 06:16 | Outpatient (CLI) | payer BC ==
[2019-05-22 08:17] VITALS: BP 130/76; PULSE 93; RESP 16; TEMP 97.2
--- NOTE | 2019-05-22 19:10 | P.MSEPDOC ---
Presenting Problems - Arrival Data Date of Arrival on Unit: 05/22/19 Time of Arrival on Unit: 06:15 Mode of Transport: Ambulatory - Complaint OB-Reason for Admission/Chief Complaint: Possible Onset of Labor Comment: Celi since 89 Medical History - Information : 2 Para: 1 Term: 1 : 0 Abortions: Spontaneous or Elective: 0 Number of Living Children: 0 - Gestational Age Gestational Age by YARELIS (wks/days): 39 Weeks and 4 Days Review of Systems - Review of Systems Constitutional: No problems Breast: No problems ENT: No problems Cardiovascular: No problems Respiratory: No problems Gastrointestinal: No problems Genitourinary: No problems Musculoskeletal: No problems Neurological: No problems Skin: No problems Vital Signs - Temperature Temperature: 97.2 F Temperature Source: Temporal Artery Scan - Pulse Right Sitting Brachial Pulse Rate: 93 Pulse Assessment Method: Automatic Cuff - Respirations Respiratory Rate: 16 Oxygen Delivery Method: Room Air - Blood Pressure Right Arm Sitting Blood Pressure: 130/76 Blood Pressure Mean: 94 Medical Screen Scoring (Pre) - Cervical Exam Dilation: 1-3 cm = 1 Effacement: More than 50% = 2 Membranes: Intact - Uterine Contractions Frequency: > 5 minutes apart = 1 Duration: > 40 seconds = 2 Intensity: N/A - Maternal Vital Signs Maternal Temperature: N/A Maternal Blood Pressure: N/A Signs of Preeclampsia: N/A Maternal Respirations: N/A - Maternal Trauma Maternal Trauma: N/A - Assessment - Baby A Baseline FHR: 140 Heart Rate - NICHD Category: Category I (Normal) = 0 NST: Reactive Position: N/A Station: N/A - Total Score - Baby A Total Score - Baby A: 6 - Total Score - Baby B Total Score - Baby B: 6 - Total Score - Baby C Total Score - Baby C: 6 - Level of Risk - Baby A Level of Risk - Baby A: Medium (6-9) - Level of Risk - Baby B Level of Risk - Baby B: Medium (6-9) - Level of Risk - Baby C Level of Risk - Baby C: Medium (6-9) Physician Notification (Pre) - Physician Notified Physician Notified Date: 05/22/19 Physician Notified Time: 08:05 New Order Received: Yes - Notification Comment Comment: TRICIA /-2, in office; contrx 4-6min apart, pt rating as mild, reactive NST. Pt to be d/c home with triage d/c instructions. Disposition - Disposition OB Disposition: Discharge to home, Written follow up instructions reviewed Discharge Date: 05/22/19 Discharge Time: 08:15 I agree with the RN Medical Screening Exam: Yes Risk & Benefit of care provided described in d/c instruction: Yes Diagnosis: FALSE LABOR AT OR AFTER 37 COMPLETED WEEKS OF GESTATION
== END 2019-05-22 08:15 | disposition home or self-care (01) ==
LOC: FBPOP 06:16
PROVIDERS: ATTEND Obstetrics & Gynecology
DX: O47.1 False labor at or after 37 completed weeks of gestation (principal); Z3A.39 39 weeks gestation of pregnancy
CPT/HCPCS: 59025; 99213

== ENCOUNTER 2019-05-22 16:48 | Inpatient (IN) | payer BC ==
[2019-05-22] MEDS ORDERED: LIDOCAINE 0.5% (PF) 5 MG/ML (50 ML SDV) SQ PRN (17:05)
[2019-05-22] MEDS ORDERED: OXYTOCIN 30 UNITS/500 ML NS 30 UNIT in SALINE 1 500ML.BAG IV SCH (17:05)
[2019-05-22] MEDS ORDERED: OXYTOCIN 10 UNIT/ML 1 ML VIAL IM PRN (17:05)
[2019-05-22] MEDS ORDERED: CARBOPROST TROMETHAMINE 250 MCG/ML 1 ML AMP IM PRN (17:05)
[2019-05-22] MEDS ORDERED: METHYLERGONOVINE 0.2 MG/ML 1 ML AMP IM PRN (17:05)
[2019-05-22] MEDS ORDERED: TERBUTALINE 1 MG/ML VIAL SQ PRN (17:05)
[2019-05-22] MEDS: LACTATED RINGERS 1,000 ML IV SCH ×2 (17:20→17:46)
[2019-05-22] MEDS ORDERED: fentaNYL (PF) 50 MCG/ML 5 ML AMP ONE (17:42)
[2019-05-22] MEDS ORDERED: ROPIVACAINE 5MG/ML 20ML VIAL ONE (17:42)
[2019-05-22] MEDS ORDERED: SODIUM CHLORIDE 0.9% 100 ML BAG ONE (17:42)
[2019-05-22 18:11] LABS: Basophils % (A) 0 %; Eosinophils # (A) 0.1 k/uL (0-0.7); Eosinophils % (A) 1 %; HCT 39.2 % (34.0-46.0); HGB 12.8 gm/dL (11.4-16.0); Lymphocytes # (A) 1.8 k/uL (1.0-4.8); Lymphocytes % (A) 22 %; MCH 26.8 pg (25.0-35.0); MCHC 32.8 g/dL (31.0-37.0); MCV 81.7 fL (80.0-100.0); Mean Platelet Volume 8.5; Monocytes # (A) 0.4 k/uL (0-1.0); Monocytes % (A) 5 %; Neutrophils # (A) 5.7 k/uL (1.3-7.7); Neutrophils % (A) 69 %; Platelet Count 277 k/uL (150-450); RBC 4.79 m/uL (3.80-5.40); RDW 14.5 % (11.5-15.5); WBC 8.4 k/uL (3.8-10.6)
[2019-05-22] MEDS ORDERED: SIMETHICONE 80 MG CHEWABLE PO PRN (19:03)
[2019-05-22] MEDS ORDERED: IBUPROFEN 600 MG TAB PO PRN (19:03)
[2019-05-22] MEDS ORDERED: diphenhydrAMINE 50 MG CAP PO PRN (19:03)
[2019-05-22] MEDS ORDERED: ACETAMINOPHEN TAB 325 MG TAB PO PRN (19:03)
[2019-05-22] MEDS ORDERED: HYDROCORTISONE 2.5% RECTAL CREAM 30 GM TUBE RECTAL PRN (19:03)
[2019-05-22] MEDS ORDERED: ZOLPIDEM 5 MG TAB PO PRN (19:03)
[2019-05-22] MEDS ORDERED: BENZOCAINE/MENTHOL SPRAY 1 GM/SPRAY AEROSOL TOPICAL PRN (19:03)
[2019-05-22] MEDS ORDERED: WITCH HAZEL 1 EACH MED..PAD TOPICAL PRN (19:03)
[2019-05-22] MEDS ORDERED: diphenhydrAMINE 50 MG/ML 1 ML VIAL IVP PRN ×2 (19:03)
[2019-05-22] MEDS ORDERED: diphenhydrAMINE 25 MG CAP PO PRN (19:03)
[2019-05-22] MEDS ORDERED: LANOLIN CREAM 5 GM TUBE TOPICAL PRN (19:03)
--- NOTE | 2019-05-22 19:06 | P.HPOB ---
History of Present Illness H&P Date: 05/22/19 Chief Complaint: Normal labor 28-year-old presents at 39 weeks and 4 days in active labor. Her cervix is 5 cm dilated, 90% effaced, and -2 station. She is angie every 2-4 minutes. In triage at 1705 her water broke and clear fluid was noted. heart tones are 130 with moderate variability and reactive. Review of Systems All systems: negative Constitutional: Denies chills, Denies fever Eyes: denies blurred vision, denies pain Ears, nose, mouth and throat: Denies headache, Denies sore throat Cardiovascular: Denies chest pain, Denies shortness of breath Respiratory: Denies cough Gastrointestinal: Denies abdominal pain, Denies diarrhea, Denies nausea, Denies vomiting Genitourinary: Denies dysuria, Denies hematuria Musculoskeletal: Denies myalgias Integumentary: Denies pruritus, Denies rash Neurological: Denies numbness, Denies weakness Psychiatric: Denies anxiety, Denies depression Endocrine: Denies fatigue, Denies weight change Past Medical History Past Medical History: Neurologic Disorder Additional Past Medical History / Comment(s): IBS,. Epilepsy since age 10. Lupus. Obstetric history: She's had one previous vaginal delivery. This is her second and she's had BL care with me since the first trimester. Blood type is A+, and weighs negative, rubella immune, hepatitis B-, GBS negative, HIV nonreactive, RPR nonreactive. History of Any Multi-Drug Resistant Organisms: None Reported Past Surgical History: No Surgical Hx Reported Past Anesthesia/Blood Transfusion Reactions: No Reported Reaction Smoking Status: Never smoker - Past Family History Mother Family Medical History: No Reported History Medications and Allergies Home Medications Medication Instructions Recorded Confirmed Type Hydroxychloroquine Sulfate 200 mg PO BID MDD 400 mg 06/25/16 05/22/19 History [Plaquenil] Multivitamin/Iron/Folic Acid 1 each PO DAILY MDD 1 06/25/16 05/22/19 History [Centrum Complete Multivit Tab] Cholecalciferol (Vitamin D3) 2,000 tab PO DAILY MDD 2000mg 08/29/16 05/22/19 History [Vitamin D3] Folic Acid 0.4 tab PO DAILY MDD 1 08/29/16 05/22/19 History lamoTRIgine [LaMICtal] 600 mg PO BID MDD 1200 mg 10/04/16 05/22/19 History Aspirin [Children's Aspirin] 1 tab PO ONCE MDD 1 04/29/19 05/22/19 History Allergies Allergy/AdvReac Type Severity Reaction Status Date / Time No Known Allergies Allergy Verified 05/22/19 06:22 Exam Osteopathic Statement: *. No significant issues noted on an osteopathic structural exam other than those noted in the History and Physical/Consult. Intake and Output 05/22/19 05/22/19 05/22/19 06:59 14:59 22:59 Other: Weight 94.801 kg Heart: Regular rate and rhythm Lungs: Clear to auscultation bilaterally Abdomen: Soft, nontender Extremities: Negative Homans sign Results Result Diagrams: 05/22/19 17:25 Assessment and Plan (1) Normal labor Current Visit: Yes Status: Acute Code(s): O80 - ENCOUNTER FOR FULL-TERM UNCOMPLICATED DELIVERY; Z37.9 - OUTCOME OF DELIVERY, UNSPECIFIED SNOMED Code(s): 03369114 (2) Epilepsy Current Visit: No Status: Acute Code(s): G40.909 - EPILEPSY, UNSP, NOT INTRACTABLE, WITHOUT STATUS EPILEPTICUS SNOMED Code(s): 27388850 Plan: 1. Admit to family place 2. Epidural for pain management 3. Anticipate normal vaginal delivery
--- NOTE | 2019-05-22 19:09 | P.PROBDLV ---
Vaginal Delivery Note - . Vaginal Delivery Note: 28-year-old presents at 39 weeks and 4 days in active labor. Her cervix is 5 cm dilated, 90% effaced, and -2 station. She is angie every 2-4 minutes. In triage at 1705 her water broke and clear fluid was noted. heart tones are 130 with moderate variability and reactive. Patient was admitted to [facility] and IV fluids were given. She was given an epidural for pain control. She was still angie every 3 minutes and her cervix was dilated to 8-9 cm, 100% effaced, -1 station. Soon after this she was completely dilated, pushed, and delivered a viable female over intact perineum under epidural anesthesia at 1846. Head delivered OP, nuchal cord 1 easily reduced, anterior shoulder which was the left shoulder delivered gentle downward guidance for by posterior shoulder and rest of body. Nose and mouth bulb suctioned, cord clamped and cut, placed on mother's abdomen. Apgars 8, 9, weight 7 lbs. 3 oz. Placenta delivered spontaneous, intact with three- vessel cord at 1849. Vagina, cervix, and perineum were inspected. First-degree midline laceration was repaired with 3-0 Vicryl. Patient's uterus was atonic in the lower uterine segment and then massaged to help stop her bleeding. Her bleeding did slow to a trickle after this and IV Pitocin. Quantitative blood loss by nursing staff was 447 mL.
[2019-05-22] MEDS ORDERED: OXYTOCIN 20 UNITS/1000 ML NS 1,000 ML IV SCH (19:15)
[2019-05-22] MEDS: HYDROXYCHLOROQUINE SULFATE 200 MG TAB PO SCH (20:54)
[2019-05-22] MEDS: lamoTRIgine 100 MG TAB PO SCH (20:54)
[2019-05-23] MEDS: SENNOSIDES-DOCUSATE SODIUM 1 EACH TAB PO SCH ×2 (05:52→08:02)
--- NOTE | 2019-05-23 06:54 | P.DS ---
Providers Date of admission: 05/22/19 17:20 Expected date of discharge: 05/23/19 Attending physician: Chelsi Mon Primary care physician: Stated None - Discharge Diagnosis(es) (1) Normal labor Current Visit: Yes Status: Resolved (2) Epilepsy Current Visit: No Status: Acute (3) Normal vaginal delivery Current Visit: No Status: Acute Hospital Course: Patient presented in active labor with spontaneous rupture membranes. She underwent a normal vaginal delivery. course uncomplicated. She'll be discharged home day #1 in stable condition to follow-up with me in 6 weeks. Plan - Discharge Summary New Discharge Prescriptions: New Ibuprofen [Motrin] 600 mg PO Q6HR PRN #30 tab PRN Reason: Mild Pain Or Fever >= 100.5 No Action Multivitamin/Iron/Folic Acid [Centrum Complete Multivit Tab] 1 each PO DAILY MDD 1 Hydroxychloroquine Sulfate [Plaquenil] 200 mg PO BID MDD 400 mg Folic Acid 0.4 tab PO DAILY MDD 1 Cholecalciferol (Vitamin D3) [Vitamin D3] 2,000 tab PO DAILY MDD 2000mg lamoTRIgine [LaMICtal] 300 mg PO BID MDD 600 Aspirin [Children's Aspirin] 1 tab PO ONCE MDD 1 Discharge Medication List Hydroxychloroquine Sulfate [Plaquenil] 200 mg PO BID MDD 400 mg 06/25/16 [History] Multivitamin/Iron/Folic Acid [Centrum Complete Multivit Tab] 1 each PO DAILY MDD 1 06/25/16 [History] Cholecalciferol (Vitamin D3) [Vitamin D3] 2,000 tab PO DAILY MDD 2000mg 08/29/16 [History] Folic Acid 0.4 tab PO DAILY MDD 1 08/29/16 [History] lamoTRIgine [LaMICtal] 300 mg PO BID MDD 600 10/04/16 [History] Aspirin [Children's Aspirin] 1 tab PO ONCE MDD 1 04/29/19 [History] Ibuprofen [Motrin] 600 mg PO Q6HR PRN #30 tab 05/23/19 [Rx] Follow up Appointment(s)/Referral(s): Chelsi Mon DO [Doctor of Osteopathic Medicine] - 6 Weeks Discharge Disposition: HOME SELF-CARE
[2019-05-23 07:00] LABS: Basophils % (A) 0 %; Eosinophils # (A) 0.1 k/uL (0-0.7); Eosinophils % (A) 1 %; HGB 10.4 gm/dL (11.4-16.0); Lymphocytes # (A) 1.7 k/uL (1.0-4.8); Lymphocytes % (A) 26 %; MCHC 32.4 g/dL (31.0-37.0); MCV 83.4 fL (80.0-100.0); Mean Platelet Volume 7.7; Monocytes # (A) 0.5 k/uL (0-1.0); Monocytes % (A) 8 %; Neutrophils % (A) 61 %; Platelet Count 224 k/uL (150-450); RBC 3.84 m/uL (3.80-5.40); RDW 14.8 % (11.5-15.5); WBC 6.5 k/uL (3.8-10.6)
[2019-05-23] MEDS: lamoTRIgine 100 MG TAB PO SCH (08:02)
[2019-05-23] MEDS: HYDROXYCHLOROQUINE SULFATE 200 MG TAB PO SCH (08:04)
[2019-05-23 08:58] VITALS: TEMP 98.3
[2019-05-23 17:57] VITALS: BP 122/78; PULSE 77; RESP 18
== END 2019-05-23 19:55 | disposition home or self-care (01) | DRG 806 ==
LOC: FBPOP 16:48 → 4FBP 17:20
PROVIDERS: ADMIT Obstetrics & Gynecology; ATTEND Obstetrics & Gynecology
PROC: 10E0XZZ Delivery of Products of Conception, External Approach (ICD-10-PCS; principal; 2019-05-22)
PROC: 0HQ9XZZ Repair Perineum Skin, External Approach (ICD-10-PCS; principal; 2019-05-22)
PROC: 3E0R3NZ Introduction of Analgesics, Hypnotics, Sedatives into Spinal Canal, Percutaneous Approach (ICD-10-PCS; principal; 2019-05-22)
PROC: 00HU33Z Insertion of Infusion Device into Spinal Canal, Percutaneous Approach (ICD-10-PCS; principal; 2019-05-22)
DX: O69.81X0 Labor and delivery complicated by cord around neck, without compression, not applicable or unspecified (principal); O99.354 Diseases of the nervous system complicating childbirth; Z37.0 Single live birth; O70.0 First degree perineal laceration during delivery; G40.909 Epilepsy, unspecified, not intractable, without status epilepticus; Z3A.39 39 weeks gestation of pregnancy; Z79.899 Other long term (current) drug therapy; Z79.82 Long term (current) use of aspirin
CPT/HCPCS: 59025; 85025; 86850; 86900; 86901; 88307; 99213

== ENCOUNTER → 2021-06-18 | Day surgery (SDC) | payer BC ==
[2021-06-13 15:11] VITALS: BMI 24.7
[~2021-06-18] MED LIST: SIMETHICONE 40 MG/0.6 ML DROPS 2,000 MG/30 ML BOTTLE PO ONE
[2021-06-18 07:08] VITALS: BP 116/75; PULSE 79; RESP 16; TEMP 98.3
== END ==
LOC: ORWHC2ENDO 06:46
PROVIDERS: ATTEND Internal Medicine Gastroenterology
DX: D50.9 Iron deficiency anemia, unspecified (principal)
CPT/HCPCS: 91110

== ENCOUNTER 2021-06-27 07:40 | Day surgery (SDC) | payer BC ==
[2021-06-25 11:27] VITALS: BMI 24.7
[~2021-06-27 07:40] MED LIST changes: +LACTATED RINGERS 1,000 ML IV SCH; -SIMETHICONE 40 MG/0.6 ML DROPS 2,000 MG/30 ML BOTTLE PO ONE
[2021-06-27 08:14] VITALS: RESP 16; TEMP 98.4
[2021-06-27] MEDS ORDERED: PROPOFOL 10 MG/ML 20 ML VIAL IV ONE (08:28)
--- NOTE | 2021-06-27 08:51 | P.PCN ---
Date of Procedure: 06/27/21 Procedure(s) Performed: Brief history: Patient is a pleasant 30-year-old white female scheduled for an elective upper endoscopy as well as colonoscopy as a part of evaluation of severe iron deficiency anemia and hemoglobin of 6.9 g/dL. She denies any GI symptoms. She recently had a small bowel capsule endoscopy that was unremarkable. Procedure performed: Esophagogastroduodenoscopy with biopsy Colonoscopy with biopsy and tattooing with Alina ink Preoperative diagnosis: Severe symptomatic iron deficiency anemia Anesthesia: MAC Procedure: After informed consent was obtained from the patient was brought into the endoscopy unit and IV sedation was administered by anesthesia under continuous monitoring. Initially upper endoscopy was done. The Olympus GF 160 video endoscope was inserted inserted into the mouth and esophagus intubated without any difficulty and was gradually advanced into the stomach and duodenum and carefully examined. The bulb and second part of the duodenum appeared normal. His were done from the duodenum to rule out celiac disease. The scope was then withdrawn into the stomach adequately insufflated with air and upon careful examination the antrum had minimal gastritis and biopsies were done from this area. The body, cardia and fundus appeared normal. The scope was then withdrawn into the esophagus. The GE junction was located at 40 cm to the incisors. It appeared regular with no erythema erosions or ulcerations. Rest of the esophagus appeared normal. Patient tolerated the procedure well. At this time the patient continued to remain sedation. Initial digital rectal examination was normal. Olympus CF 160 video colonoscope was then inserted into the rectum and gradually advanced to the cecum without any difficulty. Careful examination was performed as the scope was gradually being withdrawn. The prep was excellent. The cecum, appeared normal. In the mid ascending colon there was a semicircumferential ulcerated mass identified and multiple biopsies were done from this area followed by tattooing with Alina ink. Rest of the ascending colon, transverse colon, descending colon, sigmoid colon and rectum appeared normal. Retroflexion was performed in the rectum and no lesions were noted. Patient tolerated the procedure well. Impression: 1. Upper Endoscopy revealed mild antral gastritis but no evidence of esophagitis or peptic ulcer disease. 2. Colonoscopy revealed a semicircumferential ulcerated mass in the mid ascending colon, status post multiple biopsies followed by tattooing with Alina Recommendations: Findings of this examination were discussed with the patient as well as a family. She was advised to follow with the biopsy results. She'll be scheduled for CT of abdomen and pelvis and will be seen in office early next week
[2021-06-27 09:11] VITALS: BP 98/65; PULSE 73
== END 2021-06-27 10:20 | disposition home or self-care (01) ==
LOC: ORWHC2ENDO 07:40
PROVIDERS: ATTEND Internal Medicine Gastroenterology
DX: C18.2 Malignant neoplasm of ascending colon (principal); K29.50 Unspecified chronic gastritis without bleeding; D50.9 Iron deficiency anemia, unspecified; R56.9 Unspecified convulsions; K58.9 Irritable bowel syndrome, unspecified; Z79.899 Other long term (current) drug therapy
CPT/HCPCS: 81025; 88305; 45380; 43239; 45381; J2704

== ENCOUNTER → 2022-06-04 | Outpatient (CLI) | payer BC ==
[2022-06-04 22:37] LABS: Basophils # (A) 0.04 X 10*3/uL (0.00-0.10); Basophils % (A) 0.3 %; Eosinophils # (A) 0.05 X 10*3/uL (0.04-0.35); Eosinophils % (A) 0.4 %; HCT 43.4 % (37.2-46.3); HGB 13.2 g/dL (12.0-15.0); Immature Grans, Automated 0.4 %; Lymphocytes # (A) 1.19 X 10*3/uL (0.90-5.00); Lymphocytes % (A) 8.4 %; MCH 28.1 pg (27.0-32.0); MCHC 30.4 g/dL (32.0-37.0); MCV 92.3 fL (80.0-97.0); Monocytes # (A) 0.85 X 10*3/uL (0.20-1.00); NRBC Per 100 WBC 0 /100 WBCS (0.0-0.0); Neutrophils # (A) 11.92 X 10*3/uL (1.80-7.70); Neutrophils % (A) 84.5 %; Platelet Count 312 X 10*3/uL (140-440); RDW 13.2 % (11.5-14.5)
[2022-06-05 00:53] LABS: African American GFR (CKD) 112.3 (60.0-200.0); Anion Gap 10.8 mmol/L (10.00-18.00); BUN/Creat Ratio 16.75 Ratio (12.00-20.00); Blood Urea Nitrogen 13.4 mg/dL (9.0-27.0); Calcium 9.7 mg/dL (8.7-10.3); Carbon Dioxide 28.2 mmol/L (20.0-27.5); Non-African American GFR(CKD) 96.9 (60.0-200.0); Potassium 4.6 mmol/L (3.5-5.5)
== END | disposition home or self-care (01) ==
LOC: LABPAT 12:06
PROVIDERS: ATTEND Obstetrics & Gynecology
DX: Z01.812 Encounter for preprocedural laboratory examination (principal)
CPT/HCPCS: 36415; 80048; 85025

== ENCOUNTER 2022-06-13 05:46 | Day surgery (SDC) | payer BC ==
--- NOTE | 2022-06-12 16:25 | P.HPOB ---
History of Present Illness H&P Date: 06/12/22 Chief Complaint: Briscoe syndrome 31 year old presents for total laparoscopic hysterectomy and bilateral salpingectomy. 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 Her oncologist is recommending hysterectomy due to her increased risk of endometrial cancer. Review of Systems All systems: negative Constitutional: Denies chills, Denies fever Eyes: denies blurred vision, denies pain Ears, nose, mouth and throat: Denies headache, Denies sore throat Cardiovascular: Denies chest pain, Denies shortness of breath Respiratory: Denies cough Gastrointestinal: Denies abdominal pain, Denies diarrhea, Denies nausea, Denies vomiting Genitourinary: Denies dysuria, Denies hematuria Musculoskeletal: Denies myalgias Integumentary: Denies pruritus, Denies rash Neurological: Denies numbness, Denies weakness Psychiatric: Denies anxiety, Denies depression Endocrine: Denies fatigue, Denies weight change Past Medical History Past Medical History: Cancer, Neurologic Disorder, Seizure Disorder Additional Past Medical History / Comment(s): IBS, colon cancer with surgery, iron deficiency anemia, Epilepsy since age 10/age 10 was last seizure, Lupus History of Any Multi-Drug Resistant Organisms: MRSA Date of last positivie culture/infection: 09/05/21 MDRO Source:: Right Leg Past Surgical History: Appendectomy, Bowel Resection Additional Past Surgical History / Comment(s): R hemicolectomy, EGD, colonoscopy Past Anesthesia/Blood Transfusion Reactions: No Reported Reaction, Motion Sickness Additional Past Anesthesia/Blood Transfusion Reaction / Comment(s): Pt has had blood transfusion without reaction. Smoking Status: Never smoker - Past Family History Mother Family Medical History: Hyperlipidemia, Hypertension Father Family Medical History: Hyperlipidemia, Hypertension Medications and Allergies Home Medications Medication Instructions Recorded Confirmed Type Hydroxychloroquine Sulfate 200 mg PO BID 06/25/16 06/11/22 History [Plaquenil] Multivitamin/Iron/Folic Acid 1 each PO QAM 06/25/16 06/11/22 History [Centrum Complete Multivit Tab] lamoTRIgine [LaMICtal] 300 mg PO BID 10/04/16 06/11/22 History Acetaminophen Tab [Tylenol Tab] 1,000 mg PO Q6HR 06/11/22 06/11/22 History Amoxic-Pot Clav 875-125Mg 1 tab PO QAM 06/11/22 06/11/22 History [Augmentin 875-125] Ascorbic Acid/Elderberry Fruit 1 tab PO QAM 06/11/22 06/11/22 History [Elderberry-Vit C 50-100 mg Chw] Allergies Allergy/AdvReac Type Severity Reaction Status Date / Time sulfamethoxazole Allergy muscle Verified 06/11/22 09:08 [From Bactrim] spasms trimethoprim [From Bactrim] Allergy muscle Verified 06/11/22 09:08 spasms Exam Osteopathic Statement: *. No significant issues noted on an osteopathic structural exam other than those noted in the History and Physical/Consult. HEart: RRR Lungs: CTAB Abdomen: soft, nontender Extremeties: neg tessa's Assessment and Plan (1) Briscoe syndrome Status: Acute Code(s): Z15.09 - GENETIC SUSCEPTIBILITY TO OTHER MALIGNANT NEOPLASM SNOMED Code(s): 355411498 Plan: 1. [facility] BS using da ricky and diagnostic cystoscopy
[2022-06-13] MEDS ORDERED: MIDAZOLAM 2 MG/2 ML VIAL IV PRN (05:53)
[2022-06-13] MEDS ORDERED: HYDROmorphone 0.5 MG/0.5 ML SYRINGE IVP PRN (05:53)
[2022-06-13] MEDS ORDERED: SCOPOLAMINE 1 MG/72 HR PATCH TRANSDERM ONE (05:53)
[2022-06-13] MEDS ORDERED: LACTATED RINGERS 1,000 ML IV SCH (05:53)
[2022-06-13] MEDS ORDERED: DEXAMETHASONE SOD PHOSPHATE 4 MG/ML 1 ML VIAL IV ONE (05:53)
[2022-06-13] MEDS ORDERED: ONDANSETRON 4 MG/2 ML VIAL IVP ONE (06:22)
[2022-06-13] MEDS ORDERED: MIDAZOLAM 2 MG/2 ML VIAL IVP ONE (07:03)
[2022-06-13] MEDS ORDERED: LIDOCAINE 2% INJ 20 MG/ML (2 ML VIAL) ONE (07:15)
[2022-06-13] MEDS ORDERED: MIDAZOLAM 2 MG/2 ML VIAL ONE (07:15)
[2022-06-13] MEDS ORDERED: fentaNYL (PF) 50 MCG/ML 2 ML AMP ONE (07:15)
[2022-06-13] MEDS ORDERED: ROCURONIUM 10 MG/ML (5 ML VIAL) IV ONE (07:15)
[2022-06-13] MEDS ORDERED: NEOSTIGMINE 1 MG/ML 10 ML VIAL ONE (07:15)
[2022-06-13] MEDS ORDERED: GLYCOPYRROLATE 0.2 MG/ML 2 ML VIAL ONE (07:15)
[2022-06-13] MEDS ORDERED: MORPHINE SULFATE (PF) 0.3 MG/0.3 ML SYR ONE (07:15)
[2022-06-13] MEDS ORDERED: KETOROLAC 15 MG/ML 1 ML VIAL ONE (07:15)
[2022-06-13] MEDS ORDERED: PROPOFOL 10 MG/ML 20 ML VIAL IV ONE (07:15)
[2022-06-13] MEDS ORDERED: SUCCINYLCHOLINE CHLORIDE 200 MG/10 ML VIAL IV ONE (07:15)
[2022-06-13] MEDS ORDERED: diphenhydrAMINE 50 MG/ML 1 ML VIAL IVP PRN (07:30)
[2022-06-13] MEDS ORDERED: NALOXONE 0.4 MG/ML 1 ML VIAL IV PRN (07:30)
[2022-06-13] MEDS ORDERED: ONDANSETRON 4 MG/2 ML VIAL IVP PRN (07:30)
--- NOTE | 2022-06-13 07:32 | P.ANPRN ---
Procedure Note - Anesthesia - Epidural/Spinal Spinal Date of Procedure: 06/13/22 Procedure Start Time: 07:02 Procedure Stop Time: 07:12 Location of Patient: PreOp Indication: Requested by Surgeon Sedation Type: Sedate with meaningful contact maintained Preparation: Sterile Prep Position: Sitting Needle Guage: 25 Injectate: Duramorph 0.4 mgs, Fentanyl 25 mcg Blood Aspirated: No Pain Paresthesia on Injection Noted: No Events: Uneventful and Well Tolerated
[2022-06-13] MEDS ORDERED: BUPIVACAINE (PF) 0.25% 30 ML VIAL SQ ONE (07:55)
[2022-06-13] MEDS ORDERED: LACTATED RINGERS 1,000 ML IV ONE (08:22)
[2022-06-13] MEDS ORDERED: SIMETHICONE 80 MG CHEWABLE PO PRN (08:54)
[2022-06-13] MEDS ORDERED: METOCLOPRAMIDE 5 MG/ML 2 ML VIAL IVP PRN (08:54)
--- NOTE | 2022-06-13 08:54 | P.OP ---
Date of Procedure: 06/13/22 Preoperative Diagnosis: 1. Briscoe syndrome Postoperative Diagnosis: 1. Briscoe syndrome Procedure(s) Performed: Total laparoscopic hysterectomy, bilateral salpingectomy using da Trung and diagnostic cystoscopy Anesthesia: DIANA Surgeon: Chelsi Mon Water Analyst #1: Farhana Adams Estimated Blood Loss (ml): 20 IV fluids (ml): 1,000 Urine output (ml): 200 Pathology: other (Uterus, cervix, bilateral fallopian tubes) Condition: stable Disposition: PACU Operative Findings: Normal uterus was sounded to 8 cm. Small paratubal cyst on the left fallopian tube; normal appearing ovaries Description of Procedure: Patient taken the operating room where general anesthesia was obtained without difficulty. She is prepped and draped in normal sterile fashion dorsal lithotomy position, legs placed in the Bryan stirrups. Weighted speculum placed in the vagina and the anterior lip the cervix was grasped with single-tooth tenaculum. The uterus sounded to 8 cm and the cervix diameter was 3 cm. The appropriate manipulator tip and ring were placed on the Wendy manipulator. The Wenyd manipulator was then placed in the uterus. Hassan catheter was also placed. Attention was then turned to the abdomen and gloves were changed. A 5 mm supraumbilical incision was made the scalpel and a 5 mm optical trocar was placed under direct visualization. 10 cm to the right of this and 2 cm down a 5 mm incision was made and 8 mm da Trung port was placed under direct visualization. Same measurements on the opposite side of the patient's abdomen, the 5 mm incision was made and 8 mm da Trung port was placed under direct visualization. In the left upper quadrant a 10 mm incision was made and a 10 mm optical trocar was placed under direct visualization. The 5 mm optical trocar was then replaced with the 8 mm da Trung camera port. The robot was docked on patient's left side. The camera was introduced and then the monopolar curved scissor and Maryland bipolar placed under direct visualization. I broke scrub and went to the physician console. The left mesosalpinx was cauterized with the Maryland bipolar and cut with monopolar curved scissors to remove the left fallopian tube. The left round ligament and utero-ovarian ligaments were cauterized with the Maryland bipolar and cut with monopolar curved scissors. The posterior leaf of the broad ligament was taken down using the monopolar curved scissors. Anterior leaf of the broad ligament was then taken down using the monopolar curved scissors. The uterine artery was cauterized with the Maryland bipolar and cut with monopolar curved scissors. The bladder flap was then started using the monopolar curved scissors. Attention was then turned to the right side of the patient's anatomy and the right mesosalpinx was cauterized with the Maryland bipolar and cut with monopolar curved scissors. The right round ligament and the utero-ovarian ligaments were cauterized with the Maryland bipolar and cut with monopolar curved scissors. Posterior leaf of the broad ligament was taken down using the monopolar curved scissors and the anterior leaf was taken down using the monopolar curved scissors. The uterine artery was cauterized the Maryland bipolar cut with monopolar curved scissors. The bladder flap was then finished on this side. Anterior colpotomy was made using the monopolar curved scissors. The rest of the uterus was from the vaginal cuff by following the ring around with the monopolar curved scissors through the uterosacral ligaments back to the anterior portion. Once the uterus and cervix were amputated they were pulled through the vaginal cuff. Hemostasis was assured. The instruments were changed for the Cardier forcep and the radha suture cut. The vaginal cuff was then closed using O Vicryl in [id number] fashion. Hemostasis was again assured and the pelvis was irrigated. All instruments were removed from the abdomen and the robot was undocked. I scrubbed back in to perform a cystoscopy. There were jets from both ureteral orifices. The abdominal incisions were closed with 4-0 Vicryl in a subcuticular fashion. Patient tolerated the procedure well, sponge and instrument counts correct 2 and she was taken to recovery room in stable condition condition
[2022-06-13] MEDS: SENNOSIDES-DOCUSATE SODIUM 1 EACH TAB PO SCH ×2 (10:38→20:05)
[2022-06-13] MEDS: HYDROXYCHLOROQUINE SULFATE 200 MG TAB PO SCH ×2 (10:38→20:01)
[2022-06-13] MEDS: ACETAMINOPHEN TAB 325 MG TAB PO SCH ×2 (10:46→17:10)
[2022-06-13] MEDS: lamoTRIgine 100 MG TAB PO SCH ×2 (11:08→20:01)
[2022-06-13] MEDS: KETOROLAC 15 MG/ML 1 ML VIAL IVP SCH ×2 (14:25→20:05)
[2022-06-13] MEDS: IBUPROFEN 600 MG TAB PO SCH ×3 (15:51→23:11)
[2022-06-14] MEDS: ACETAMINOPHEN TAB 325 MG TAB PO SCH ×2 (00:24→14:04)
[2022-06-14] MEDS: KETOROLAC 15 MG/ML 1 ML VIAL IVP SCH (00:24)
[2022-06-14 07:40] LABS: Basophils % (A) 0 %; Eosinophils # (A) 0.1 k/uL (0-0.7); Eosinophils % (A) 2 %; HGB 11.1 gm/dL (11.4-16.0); Lymphocytes # (A) 1.8 k/uL (1.0-4.8); Lymphocytes % (A) 31 %; MCHC 32.6 g/dL (31.0-37.0); Mean Platelet Volume 7.1; Monocytes # (A) 0.3 k/uL (0-1.0); Monocytes % (A) 5 %; Neutrophils # (A) 3.5 k/uL (1.3-7.7); Neutrophils % (A) 60 %; Platelet Count 249 k/uL (150-450); RBC 3.82 m/uL (3.80-5.40); RDW 13.1 % (11.5-15.5); WBC 5.8 k/uL (3.8-10.6)
[2022-06-14 08:00] VITALS: RESP 16
[2022-06-14] MEDS: IBUPROFEN 600 MG TAB PO SCH (09:10)
[2022-06-14] MEDS: SENNOSIDES-DOCUSATE SODIUM 1 EACH TAB PO SCH (09:11)
[2022-06-14] MEDS: HYDROXYCHLOROQUINE SULFATE 200 MG TAB PO SCH (09:12)
[2022-06-14] MEDS: lamoTRIgine 100 MG TAB PO SCH (09:12)
--- NOTE | 2022-06-14 09:24 | P.PN ---
Progress Note - Text 06/14/22 601am 31-year-old female status post robotic-assisted vaginal hysterectomy with spinal Duramorph. Patient seen and examined for postop pain control, patient has a VAS of 1 with no complains of nausea vomiting. She's does have pruritus which should subside soon
--- NOTE | 2022-06-14 09:38 | P.DS ---
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 She did have a Duramorph spinal and then a general anesthetic. Postoperatively her pain is well-controlled she is tolerating regular diet and passing flatus. She is unable to void on her own. She has had a straight cathed 2 times for a total of 1400 mL of urine. All straight catheter one more time as her sense of micturition is back, this seems to be improving. Patient will be discharged home when she can urinate. She'll be discharged home postoperative day #1 in stable condition to follow-up with me in 3 weeks. Plan - Discharge Summary Discharge Rx Participant: No New Discharge Prescriptions: New Ibuprofen [Motrin] 600 mg PO Q6HR #30 tab No Action Multivitamin/Iron/Folic Acid [Centrum Complete Multivit Tab] 1 each PO QAM Hydroxychloroquine Sulfate [Plaquenil] 200 mg PO BID lamoTRIgine [LaMICtal] 300 mg PO BID Amoxic-Pot Clav 875-125Mg [Augmentin 875-125] 1 tab PO QAM Acetaminophen Tab [Tylenol Tab] 1,000 mg PO Q6HR Ascorbic Acid/Elderberry Fruit [Elderberry-Vit C 50-100 mg Chw] 1 tab PO QAM Discharge Medication List Hydroxychloroquine Sulfate [Plaquenil] 200 mg PO BID 06/25/16 [History] Multivitamin/Iron/Folic Acid [Centrum Complete Multivit Tab] 1 each PO QAM 06/25/16 [History] lamoTRIgine [LaMICtal] 300 mg PO BID 10/04/16 [History] Acetaminophen Tab [Tylenol Tab] 1,000 mg PO Q6HR 06/11/22 [History] Amoxic-Pot Clav 875-125Mg [Augmentin 875-125] 1 tab PO QAM 06/11/22 [History] Ascorbic Acid/Elderberry Fruit [Elderberry-Vit C 50-100 mg Chw] 1 tab PO QAM 06/11/22 [History] Ibuprofen [Motrin] 600 mg PO Q6HR #30 tab 04/07/23 [Rx] Follow up Appointment(s)/Referral(s): Chelsi Mon DO [Doctor of Osteopathic Medicine] - 3 Weeks Discharge Disposition: HOME SELF-CARE
[2022-06-14 12:18] VITALS: BP 109/73; PULSE 83; TEMP 98
== END 2022-06-14 14:36 | disposition home or self-care (01) ==
LOC: OR 05:46 → 4FBP 09:42 → OR 06-14 14:36
PROVIDERS: ATTEND Obstetrics & Gynecology
DX: N84.0 Polyp of corpus uteri (principal); D27.1 Benign neoplasm of left ovary; D27.0 Benign neoplasm of right ovary; G40.909 Epilepsy, unspecified, not intractable, without status epilepticus; K58.9 Irritable bowel syndrome, unspecified; D50.9 Iron deficiency anemia, unspecified; M32.9 Systemic lupus erythematosus, unspecified; Z90.49 Acquired absence of other specified parts of digestive tract; Z98.84 Bariatric surgery status; Z82.49 Family history of ischemic heart disease and other diseases of the circulatory system; Z83.49 Family history of other endocrine, nutritional and metabolic diseases; Z79.899 Other long term (current) drug therapy; Z88.2 Allergy status to sulfonamides; Z88.1 Allergy status to other antibiotic agents
CPT/HCPCS: 58552; S2900; 81025; 85025; 86850; 86900; 86901; 88307

== ENCOUNTER 2023-02-18 09:34 | Day surgery (SDC) | payer BC ==
[2023-02-14 12:15] VITALS: BMI 25.1
[~2023-02-18 09:34] MED LIST changes: +LIDOCAINE 1% (10MG/ML) FOR IV START INTRADERMA PRN
[2023-02-18] MEDS ORDERED: PROPOFOL 10 MG/ML 20 ML VIAL IV ONE (10:21)
[2023-02-18 10:40] VITALS: RESP 16; TEMP 98.9
--- NOTE | 2023-02-18 10:42 | P.PCN ---
Date of Procedure: 02/18/23 Procedure(s) Performed: BRIEF HISTORY: Patient is a 32-year-old pleasant white female scheduled for scheduled for an elective colonoscopy as a part of surveillance of previous history of colon cancer diagnosed in June 2021. She underwent right hemicolectomy. Subsequently had genetic testing that was positive for Briscoe syndrome'she was recommended to have annual colonoscopies PROCEDURE PERFORMED: Colonoscopy. PREOPERATIVE DIAGNOSIS: History of colon cancer/Briscoe syndrome. IV sedation per Anesthesia. PROCEDURE: After informed consent was obtained, the patient, was brought into the endoscopy unit. IV sedation was administered by Anesthesia under continuous monitoring. Digital rectal examination was normal. Initially the Olympus CF-160 flexible video colonoscope was then inserted in the rectum, gradually advanced into the right colon with ileocolonic anastomosis was identified and appeared normal. Mucosa of the transverse colon, descending colon, sigmoid colon, and rectum appeared normal. Retroflexion was performed in the rectum and no lesions were seen. The patient tolerated the procedure well. IMPRESSION: Normal-appearing colon from rectum to right colon with normal- appearing anastomosis RECOMMENDATIONS: Findings of this examination were discussed with the patient as well as her family. She was advised to have a repeat colonoscopy on a daily basis and also recommend upper endoscopy every 5 years..
[2023-02-18 11:31] VITALS: BP 130/70; PULSE 72
== END 2023-02-18 11:30 | disposition home or self-care (01) ==
LOC: ORWHC2ENDO 09:34
PROVIDERS: ATTEND Internal Medicine Gastroenterology
DX: Z15.09 Genetic susceptibility to other malignant neoplasm (principal); G40.909 Epilepsy, unspecified, not intractable, without status epilepticus; Z86.010 Personal history of colon polyps; Z79.899 Other long term (current) drug therapy; Z98.890 Other specified postprocedural states; Z90.710 Acquired absence of both cervix and uterus
CPT/HCPCS: 45378; J2704

== ENCOUNTER 2024-03-24 12:12 | Day surgery (SDC) | payer BC ==
[2024-03-19 09:22] VITALS: BMI 24.3
[~2024-03-24 12:12] MED LIST changes: +ONDANSETRON 4 MG/2 ML VIAL IVP PRN
[2024-03-24 13:21] VITALS: TEMP 97.4
[2024-03-24] MEDS: IV FLUID CONTINUATION 500 ML IV ONE (13:36)
[2024-03-24] MEDS ORDERED: PROPOFOL 10 MG/ML 20 ML VIAL IV ONE (13:52)
--- NOTE | 2024-03-24 14:16 | P.PCN ---
Date of Procedure: 03/24/24 Procedure(s) Performed: BRIEF HISTORY: Patient is a 33-year-old pleasant white female scheduled for an elective colonoscopy as a part of evidence of prior history of colon cancer diagnosed in June 2021 when she is s/p right hemicolectomy. She was subsequently diagnosed with Briscoe syndrome. Her last colonoscopy was in February 2023 that was unremarkable. She is scheduled for an annual colonoscopy today.. PROCEDURE PERFORMED: Colonoscopy with snare polypectomy. PREOPERATIVE DIAGNOSIS: History of colon cancer/Briscoe syndrome. IV sedation per Anesthesia. PROCEDURE: After informed consent was obtained, the patient, was brought into the endoscopy unit. IV sedation was administered by Anesthesia under continuous monitoring. Digital rectal examination was normal. Initially the Olympus CF-160 flexible video colonoscope was then inserted in the rectum, gradually advanced into the right colon with ileocolic anastomosis was visualized and appeared normal. Mucosa of the transverse colon, normal. The descending colon there was a 6 mm sessile polyp removed by cold snare polypectomy. Rest of the descending colon, sigmoid colon, and rectum appeared normal. Retroflexion was performed in the rectum and no lesions were seen. The patient tolerated the procedure well. IMPRESSION: 6 mm descending colon polyp status post cold snare polypectomy Rest of the colon up to the ileocolic anastomosis appeared normal RECOMMENDATIONS: Findings of this examination were discussed with the patient as well as her family. She was advised to follow-up with the biopsy results. Recommended repeat screening colonoscopy in 1 year..
[2024-03-24 14:22] VITALS: RESP 16
[2024-03-24 14:34] VITALS: BP 108/72; PULSE 80
== END 2024-03-24 15:10 | disposition home or self-care (01) ==
LOC: ORWHC2ENDO 12:12
PROVIDERS: ATTEND Internal Medicine Gastroenterology
DX: Z12.11 Encounter for screening for malignant neoplasm of colon (principal); K63.5 Polyp of colon; G40.909 Epilepsy, unspecified, not intractable, without status epilepticus; M32.9 Systemic lupus erythematosus, unspecified; K58.9 Irritable bowel syndrome, unspecified; Z79.899 Other long term (current) drug therapy; Z88.1 Allergy status to other antibiotic agents; Z90.710 Acquired absence of both cervix and uterus; Z86.0100 Personal history of colon polyps, unspecified; Z85.038 Personal history of other malignant neoplasm of large intestine; Z90.49 Acquired absence of other specified parts of digestive tract; Z98.890 Other specified postprocedural states
CPT/HCPCS: 88305; 45385; J2704

== ENCOUNTER → 2024-04-13 | Outpatient (CLI) | payer BC ==
[2024-04-13 15:24] VITALS: BP 117/73; PULSE 77; RESP 16; TEMP 98.1
--- NOTE | 2024-04-13 15:57 | P.SLEEP ---
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 She gets home by around 2 AM on workdays hide she has no get up early to take care of her children. On those days, she feels quite exhausted. She snores. She also has grinding of the teeth and during the recent evaluation by her dentist, she was offered a bite guard. There was also suspicion for obstructive sleep apnea and the patient has significant crowding of the posterior pharynx. No recent weight gain. Denies waking up choking or gasping for air. No sleepwalking. No sleep talking. No restlessness at night. No heartburn. No nocturia. She wakes up tired and she feels exhausted during the day. She does not fall asleep while driving. She has other comorbidities including seizure disorder which is currently inactive and stable. She has Briscoe syndrome and she has been diagnosed having colon cancer and she has undergone partial colectomy. She also has a unspecified connective tissue disease disorder/lupus maintained on Plaquenil on an outpatient basis. No substance abuse. No alcoholism. She drinks 1 can of Monster on a daily basis to get herself stimulated. No other caffeinated beverages. Review of Systems A full review of system was done and the positive findings are all mentioned above history of present illness Past Medical History Past Medical History: Cancer, Hyperlipidemia, Seizure Disorder Additional Past Medical History / Comment(s): IBS. Hx colon cancer July 2021. Briscoe Syndrome. Epilepsy since age 10, last seizure 7 yrs ago. Lupus, sinus headaches, snoring, headaches. History of Any Multi-Drug Resistant Organisms: MRSA Date of last positivie culture/infection: 09/05/21 MDRO Source:: Right Leg Past Surgical History: Appendectomy, Bowel Resection, Hysterectomy Additional Past Surgical History / Comment(s): right hemicolectomy Past Anesthesia/Blood Transfusion Reactions: No Reported Reaction Additional Past Anesthesia/Blood Transfusion Reaction / Comment(s): no blood transfusion reaction Past Psychological History: No Psychological Hx Reported Smoking Status: Never smoker Past Alcohol Use History: None Reported Past Drug Use History: None Reported - Past Family History Mother Family Medical History: Hyperlipidemia, Hypertension Father Family Medical History: Hyperlipidemia, Hypertension Additional Family Medical History / Comment(s): Sinus headaches, snoring, Brother(s) Additional Family Medical History / Comment(s): Seizures (grand mal) Medications and Allergies Home Medications Medication Instructions Recorded Confirmed Type Hydroxychloroquine Sulfate 200 mg PO BID 06/25/16 04/13/24 History [Plaquenil] lamoTRIgine [LaMICtal] 300 mg PO BID 10/04/16 04/13/24 History Cholecalciferol [Vitamin D3 (25 50 mcg PO DAILY 02/14/23 04/13/24 History Mcg = 1000 Iu)] Ferrous Sulfate [Iron (65 MG 325 mg PO DIRECTED 04/13/24 04/13/24 History Elemental)] Allergies Allergy/AdvReac Type Severity Reaction Status Date / Time sulfamethoxazole Allergy muscle Verified 03/24/24 13:13 [From Bactrim] spasms trimethoprim [From Bactrim] Allergy muscle Verified 03/24/24 13:13 spasms Physical Exam Vitals: Vital Signs Temp Pulse Resp BP Pulse Ox 04/13/24 15:23 98.1 F 77 16 117/73 100 Intake and Output 04/13/24 04/13/24 04/13/24 06:59 14:59 22:59 Other: Weight 73.539 kg The patient appeared well nourished and normally developed. Vital signs as documented. Head exam is unremarkable. No scleral icterus or corneal arcus noted. Neck is without jugular venous distension, thyromegaly, or carotid bruits. Carotid upstrokes are brisk bilaterally. Mallampati class IV with crowding of the posterior pharynx Lungs are clear to auscultation and percussion. Cardiac exam reveals the PMI to be normally sized and situated. Rhythm is regular. First and second heart sounds normal. No murmurs, rubs or gallops. Abdominal exam reveals normal bowel sounds, no masses, no organomegaly and no aortic enlargement. Extremities are nonedematous and both femoral and pedal pulses are normal. Examination of the skin revealed no evidence of significant rashes, suspicious appearing nevi or other concerning lesions. Neurologically, the patient is awake and alert and the patient does not have any focal neurological deficit. Cranial nerves are essentially intact. Assessment and Plan Plan: Chronic fatigue/limited sleepiness, [place] score of 6. Sleep apnea is possible although considered to be less likely. He has grinding of the teeth. 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 Will do further investigation. Grinding of the teeth and the patient wearing a bite guard Seizure disorder History of Briscoe syndrome with a previous history of colon cancer underwent a right hemicolectomy Unspecified connective tissue disease disorder/lupus, maintained on Plaquenil History of iron deficiency secondary to above, currently on oral iron. Plan Proceed with a home sleep study to evaluate for the presence of sleep apnea and decide on treatment options accordingly. Regulate sleep schedule Maintain regular sleep schedule and good sleep hygiene measures Avoid any sleep deprivation Will continue to follow and make further recommendations based on the results of the home sleep study. Sleep Note - Sleep Data ESS Total: 6 - Sleep Note Sleep Note: Temperature: 98.1 F Pulse Rate: 77 Respiratory Rate: 16 Blood Pressure: 117/73 SpO2: 100 Height: 5 ft 8.2 in Weight: 73.539 kg BMI: Neck Circumference: 13.5
== END ==
LOC: 3 N SLEEP 14:19
PROVIDERS: ATTEND Internal Medicine Critical Care Medicine
DX: R53.82 Chronic fatigue, unspecified (principal); F51.12 Insufficient sleep syndrome; R56.9 Unspecified convulsions; M35.9 Systemic involvement of connective tissue, unspecified; Z15.09 Genetic susceptibility to other malignant neoplasm; Z85.038 Personal history of other malignant neoplasm of large intestine; Z86.2 Personal history of diseases of the blood and blood-forming organs and certain disorders involving the immune mechanism; Z90.49 Acquired absence of other specified parts of digestive tract; Z88.2 Allergy status to sulfonamides
CPT/HCPCS: 99211

== ENCOUNTER → 2024-04-27 | Outpatient (CLI) | payer BC ==
--- NOTE | 2024-05-02 23:05 | P.PCN ---
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 She gets home by around 2 AM on workdays hide she has no get up early to take care of her children. On those days, she feels quite exhausted. She snores. She also has grinding of the teeth and during the recent evaluation by her dentist, she was offered a bite guard. There was also suspicion for obstructive sleep apnea and the patient has significant crowding of the posterior pharynx. No recent weight gain. Denies waking up choking or gasping for air. No sleepwalking. No sleep talking. No restlessness at night. No heartburn. No nocturia. She wakes up tired and she feels exhausted during the day. She does not fall asleep while driving. She has other comorbidities including seizure disorder which is currently inactive and stable. She has Briscoe syndrome and she has been diagnosed having colon cancer and she has undergone partial colectomy. She also has a unspecified connective tissue disease disorder/lupus maintained on Plaquenil on an outpatient basis. No substance abuse. No alcoholism. She drinks 1 can of Monster on a daily basis to get herself stimulated. No other caffeinated beverages. Pertinent physical findings Body mass index of 24.5 Technical description The [employer] Ap[employer] system was used to complete his home sleep study. This is a type III home sleep study evaluation. The total recording duration was 8 hours and 32 minutes. The study started at 10:41 PM and ended at 7:14 AM. There was a total of 8 hours and 20 minutes of flow monitoring and 8 hours and 22 minutes of oxygen saturation monitoring. Results Respiratory analysis showed a total of 1 obstructive apnea and 1 obstructive hypopnea. The resulting AHI was 0.2 Oxygenation analysis No significant oxygen desaturations encountered throughout the sleep study and the patient was able to maintain a pulse ox of about 90% throughout sleep study. Average pulse ox during sleep was 96%. Cardiac evaluation Average heart rate was 72 with a minimum heart rate of 60 and a maximum heart rate of 93 Assessment Primary snoring, no evidence of any sleep breathing disorder. AHI 0.2 Chronic fatigue/limited sleepiness, [place] score of 6. He has grinding of the teeth. 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 Grinding of the teeth and the patient wearing a bite guard Seizure disorder History of Briscoe syndrome with a previous history of colon cancer underwent a right hemicolectomy Unspecified connective tissue disease disorder/lupus, maintained on Plaquenil History of iron deficiency secondary to above, currently on oral iron. Plan The patient will be reassured. No evidence of any sleep eating disorder. No need for CPAP therapy Regulate sleep schedule Maintain regular sleep schedule and good sleep hygiene measures Avoid any sleep deprivation and extend sleep hours on average of 7 to 8 hours per 24 hours Bite guard Will refer the patient back to the primary care
== END ==
LOC: 3 N SLEEP 16:56
PROVIDERS: ATTEND Internal Medicine Critical Care Medicine
DX: R06.83 Snoring (principal); R53.82 Chronic fatigue, unspecified; G47.63 Sleep related bruxism; F51.12 Insufficient sleep syndrome; R56.9 Unspecified convulsions; Z15.09 Genetic susceptibility to other malignant neoplasm; Z90.49 Acquired absence of other specified parts of digestive tract; Z85.038 Personal history of other malignant neoplasm of large intestine; M35.9 Systemic involvement of connective tissue, unspecified; Z86.39 Personal history of other endocrine, nutritional and metabolic disease; Z88.2 Allergy status to sulfonamides